=== PATIENT | female | born 1985 | race Caucasian/White ===

== ENCOUNTER 2017-02-07 12:41 | Emergency (ER) | payer OTHER ==
[2017-02-07] MEDS ORDERED: KETOROLAC 30 MG/ML 1 ML VIAL IVP STA (13:26)
--- NOTE | 2017-02-07 14:03 | ED ---
General Adult HPI - General Chief complaint: Chest Pain Stated complaint: Chest/Back Pain Time Seen by Provider: 02/07/17 13:16 Source: patient Mode of arrival: wheelchair Limitations: no limitations - History of Present Illness Initial comments: 31-year-old female patient presented to emergency department today with complaints of left upper back pain radiates around her left side into her chest. Patient states this has been present for the last 2 days. Patient states that it started as a mild sharp pain to the back, and has progressively worsened and spread to the chest. She states the pain increases significantly with any deep breath, movement, or coughing. She states that she has had pleurisy in the past this feels similar to that. She states that the pain is severe and she cannot tolerate it any longer. She denies any falls or injury causing the pain. She denies any shortness of breath. Denies any cough, congestion, fever, chills, nausea, vomiting, dizziness, weakness, numbness, tinlging, sweats, abdominal pain, neck pain, hematuria, dysuria, urinary frequency, or urinary urgency. Denies any constipation or diarrhea. - Related Data Previous Rx's Medication Instructions Recorded Omeprazole 40 mg PO AC-BRKFST #20 cap 03/06/15 Sucralfate [Carafate] 1 gm PO TID PRN #30 oral.susp 03/06/15 Sulfamethox-Tmp 800-160Mg [Bactrim 1 each PO Q12HR #10 tab 03/06/15 Ds] Acetaminophen-Codeine 300-30mg 1 tab PO Q6H PRN #15 tablet 02/07/17 [Tylenol #3] Cyclobenzaprine [Flexeril] 10 mg PO TID #15 tab 02/07/17 Ibuprofen [Motrin] 600 mg PO Q8HR PRN #30 tab 02/07/17 Allergies Allergy/AdvReac Type Severity Reaction Status Date / Time No Known Allergies Allergy Verified 03/06/15 12:29 Review of Systems ROS Statement: Those systems with pertinent positive or pertinent negative responses have been documented in the HPI. ROS Other: All systems not noted in ROS Statement are negative. Past Medical History Past Medical History: No Reported History Additional Past Medical History / Comment(s): kidney History of Any Multi-Drug Resistant Organisms: None Reported Past Surgical History: Section Past Psychological History: No Psychological Hx Reported Smoking Status: Current every day smoker Past Alcohol Use History: Occasional Past Drug Use History: None Reported General Exam Limitations: no limitations General appearance: alert, anxious, in distress (This is a well-developed, well- nourished adult female patient in mild distress related to pain. Patient is anxious and crying during exam. Vital signs upon presentation are temperature 98.0F, pulse 113, respirations 18, blood pressure 141/89, pulse ox 100% on room air.) ENT exam: Present: normal exam, normal oropharynx, mucous membranes moist Neck exam: Present: normal inspection, full ROM. Absent: tenderness, meningismus, lymphadenopathy Respiratory exam: Present: normal lung sounds bilaterally. Absent: respiratory distress, wheezes, rales, rhonchi, stridor, chest wall tenderness Cardiovascular Exam: Present: normal rhythm, tachycardia, normal heart sounds. Absent: systolic murmur, diastolic murmur, rubs, gallop, clicks GI/Abdominal exam: Present: soft, normal bowel sounds. Absent: distended, tenderness, guarding, rebound, rigid Extremities exam: Present: normal inspection, full ROM, normal capillary refill. Absent: tenderness, pedal edema, joint swelling, calf tenderness Back exam: Present: normal inspection. Absent: tenderness, rash noted Neurological exam: Present: alert, oriented X3, CN II-XII intact Psychiatric exam: Present: normal affect, normal mood Skin exam: Present: warm, dry, intact, normal color. Absent: rash Course Vital Signs 02/07/17 02/07/17 13:02 14:35 Temperature 98.0 F Pulse Rate 113 H 106 H Respiratory 18 22 Rate Blood Pressure 141/89 146/96 O2 Sat by Pulse 100 99 Oximetry EKG Findings - EKG Comments: EKG Findings:: EKG obtained at 1313 shows normal sinus rhythm with a short VA interval. There is appearance of a septal infarct of indeterminate age. Ventricular rate is 100, VA interval 104, QRS duration 74, QT 374, QTC 482. There is some artifact noted throughout the reading. Medical Decision Making - Medical Decision Making 31-year-old female patient presented for evaluation of left upper back pain that radiates around to her chest. Physical exam is unremarkable, patient is nontender, there is no evidence of rash. Lung sounds are clear. Urinalysis was performed and did show trace blood, but with less than 1 red blood cell. No evidence of infection. Patient has had pleurisy before and states this feels very similar. Patient did receive IV pain medication here in the department which she states did improve her pain. She'll be given pain medication for home as well as the next 2 days off work. She is instructed to follow-up with her primary care physician for recheck in 1-2 days. She is instructed to return here immediately for any new, worsening, or concerning symptoms. She verbalizes understanding and agrees this plan. - Lab Data Result diagrams: 02/07/17 13:45 02/07/17 13:45 Lab Results 02/07/17 02/07/17 02/07/17 Range/Units 13:45 13:45 13:45 WBC 8.5 (3.8-10.6) k/uL RBC 4.02 (3.80-5.40) m/uL Hgb 12.3 (11.4-16.0) gm/dL Hct 38.6 (34.0-46.0) % MCV 95.9 (80.0-100.0) fL MCH 30.5 (25.0-35.0) pg MCHC 31.9 (31.0-37.0) g/dL RDW 17.2 H (11.5-15.5) % Plt Count 364 (150-450) k/uL Neutrophils % 68 % Lymphocytes % 22 % Monocytes % 7 % Eosinophils % 2 % Basophils % 1 % Neutrophils # 5.8 (1.3-7.7) k/uL Lymphocytes # 1.9 (1.0-4.8) k/uL Monocytes # 0.6 (0-1.0) k/uL Eosinophils # 0.1 (0-0.7) k/uL Basophils # 0.1 (0-0.2) k/uL Anisocytosis Slight Macrocytosis Slight D-Dimer 0.23 (<0.60) mg/L FEU Sodium 139 (137-145) mmol/L Potassium 4.1 (3.5-5.1) mmol/L Chloride 104 (98-107) mmol/L Carbon Dioxide 18 L (22-30) mmol/L Anion Gap 17 mmol/L BUN 11 (7-17) mg/dL Creatinine 0.85 (0.52-1.04) mg/dL Est GFR (MDRD) Af Amer >60 (>60 ml/min/1.73 sqM) Est GFR (MDRD) Non-Af >60 (>60 ml/min/1.73 sqM) Glucose 96 (74-99) mg/dL Calcium 9.6 (8.4-10.2) mg/dL Total Bilirubin 0.4 (0.2-1.3) mg/dL AST 63 H (14-36) U/L ALT 40 (9-52) U/L Alkaline Phosphatase 103 (38-126) U/L Troponin I (0.000-0.034) ng/mL Total Protein 7.7 (6.3-8.2) g/dL Albumin 4.5 (3.5-5.0) g/dL Urine Color Urine Appearance (Clear) Urine pH (5.0-8.0) Ur Specific [place] (1.001-1.035) Urine Protein (Negative) Urine Glucose (UA) (Negative) Urine Ketones (Negative) Urine Blood (Negative) Urine Nitrite (Negative) Urine Bilirubin (Negative) Urine Urobilinogen (<2.0) mg/dL Ur Leukocyte Esterase (Negative) Urine RBC (0-5) /hpf Urine WBC (0-5) /hpf Ur Squamous Epith Cells (0-4) /hpf Amorphous Sediment (None) /hpf Urine Mucus (None) /hpf Urine HCG, Qual (Not Detectd) 02/07/17 02/07/17 02/07/17 Range/Units 13:45 13:45 13:45 WBC (3.8-10.6) k/uL RBC (3.80-5.40) m/uL Hgb (11.4-16.0) gm/dL Hct (34.0-46.0) % MCV (80.0-100.0) fL MCH (25.0-35.0) pg MCHC (31.0-37.0) g/dL RDW (11.5-15.5) % Plt Count (150-450) k/uL Neutrophils % % Lymphocytes % % Monocytes % % Eosinophils % % Basophils % % Neutrophils # (1.3-7.7) k/uL Lymphocytes # (1.0-4.8) k/uL Monocytes # (0-1.0) k/uL Eosinophils # (0-0.7) k/uL Basophils # (0-0.2) k/uL Anisocytosis Macrocytosis D-Dimer (<0.60) mg/L FEU Sodium (137-145) mmol/L Potassium (3.5-5.1) mmol/L Chloride (98-107) mmol/L Carbon Dioxide (22-30) mmol/L Anion Gap mmol/L BUN (7-17) mg/dL Creatinine (0.52-1.04) mg/dL Est GFR (MDRD) Af Amer (>60 ml/min/1.73 sqM) Est GFR (MDRD) Non-Af (>60 ml/min/1.73 sqM) Glucose (74-99) mg/dL Calcium (8.4-10.2) mg/dL Total Bilirubin (0.2-1.3) mg/dL AST (14-36) U/L ALT (9-52) U/L Alkaline Phosphatase (38-126) U/L Troponin I <0.012 (0.000-0.034) ng/mL Total Protein (6.3-8.2) g/dL Albumin (3.5-5.0) g/dL Urine Color Colorless Urine Appearance Clear (Clear) Urine pH 5.0 (5.0-8.0) Ur Specific [place] 1.004 (1.001-1.035) Urine Protein Negative (Negative) Urine Glucose (UA) Negative (Negative) Urine Ketones Negative (Negative) Urine Blood Small H (Negative) Urine Nitrite Negative (Negative) Urine Bilirubin Negative (Negative) Urine Urobilinogen <2.0 (<2.0) mg/dL Ur Leukocyte Esterase Negative (Negative) Urine RBC <1 (0-5) /hpf Urine WBC 2 (0-5) /hpf Ur Squamous Epith Cells <1 (0-4) /hpf Amorphous Sediment Rare H (None) /hpf Urine Mucus Rare H (None) /hpf Urine HCG, Qual Not Detected (Not Detectd) - Radiology Data Radiology results: report reviewed, image reviewed Two-view x-ray of the chest as the cardiac mediastinal Laura, aorta, and pulmonary vasculature within normal limits. Lungs and pleural spaces are clear. Impression by Dr. Shay shows no acute cardio pulmonary process. Disposition Clinical Impression: Upper back pain on left side, Pleurisy Disposition: HOME SELF-CARE Condition: Good Instructions: Pleurisy (ED), Back Pain (ED) Additional Instructions: Take medications as directed. Increase fluids. Rest. Follow-up with her primary care physician for recheck in 1-2 days. Return here immediately for any new, worsening, or concerning symptoms. Prescriptions: Acetaminophen-Codeine 300-30mg [Tylenol #3] 1 tab PO Q6H PRN #15 tablet PRN Reason: Pain Cyclobenzaprine [Flexeril] 10 mg PO TID #15 tab Ibuprofen [Motrin] 600 mg PO Q8HR PRN #30 tab PRN Reason: Pain Referrals: Kt Leach MD [Primary Care Provider] - 1-2 days Time of Disposition: 15:16
[2017-02-07 14:14] LABS: Anisocytosis Slight; Basophils # (A) 0.1 k/uL (0-0.2); Basophils % (A) 1 %; CH 31.5; CHCM 32.9; Eosinophils # (A) 0.1 k/uL (0-0.7); Eosinophils % (A) 2 %; HCT 38.6 % (34.0-46.0); HDW 2.37; HGB 12.3 gm/dL (11.4-16.0); Luc # (Auto) 0.09; Luc % (Auto) 1; Lymphocytes # (A) 1.9 k/uL (1.0-4.8); Lymphocytes % (A) 22 %; MCH 30.5 pg (25.0-35.0); MCHC 31.9 g/dL (31.0-37.0); MCV 95.9 fL (80.0-100.0); Macrocytosis Slight; Mean Platelet Volume 7.1; Monocytes # (A) 0.6 k/uL (0-1.0); Monocytes % (A) 7 %; Neutrophils # (A) 5.8 k/uL (1.3-7.7); Neutrophils % (A) 68 %; RBC 4.02 m/uL (3.80-5.40); RDW 17.2 % (11.5-15.5); WBC 8.5 k/uL (3.8-10.6); WBC (Perox) 8.84
[2017-02-07 14:16] LABS: Amorphous Sediment,Urine Rare /hpf; Appearance,Urine Clear (Clear); Bilirubin,Urine Negative (Negative); Glucose,Urine (UA) Negative (Negative); Ketones,Urine Negative (Negative); Leukocyte Esterase,Urine Negative (Negative); Mucus,Urine Rare /hpf; Nitrite,Urine Negative (Negative); Particle Count 782; Protein,Urine Negative (Negative); RBC,Urine <1 /hpf (0-5); Specific Gravity,Urine 1.004 (1.001-1.035); Squamous Epithelial Cell,Urine <1 /hpf (0-4); UA Billing (MACRO vs. MICRO) MICRO; Urobilinogen,Urine <2.0 mg/dL (<2.0); WBC,Urine 2 /hpf (0-5)
[2017-02-07 14:23] LABS: ALT 40 U/L (9-52); AST 63 U/L (14-36); Alkaline Phosphatase 103 U/L (38-126); Anion Gap 17 mmol/L; Blood Urea Nitrogen 11 mg/dL (7-17); Calcium 9.6 mg/dL (8.4-10.2); Carbon Dioxide 18 mmol/L (22-30); Chloride 104 mmol/L (98-107); Glucose 96 mg/dL (74-99); Non-African American GFR(MDRD) >60 (>60 ml/min/1.73 sqM); Potassium 4.1 mmol/L (3.5-5.1); Sodium 139 mmol/L (137-145); Total Bilirubin 0.4 mg/dL (0.2-1.3); Total Protein 7.7 g/dL (6.3-8.2)
--- NOTE | 2017-02-07 14:33 | XR ---
EXAMINATION TYPE: XR chest 2V DATE OF EXAM: 02/07/2017 COMPARISON: None HISTORY: 31-year-old female with chest pain and shortness of breath TECHNIQUE: PA and lateral views FINDINGS: The cardiomediastinal silhouette, aorta, and pulmonary vasculature are within normal limits. Lungs an d pleural spaces are clear. IMPRESSION: No acute cardiopulmonary process.
[2017-02-07] MEDS ORDERED: HYDROmorphone 1 MG/ML 1 ML SYRINGE IVP STA (14:34)
[2017-02-07 15:34] VITALS: BP 146/87; PULSE 83; RESP 20; TEMP 98.3
== END 2017-02-07 15:30 | disposition home or self-care (01) ==
LOC: EC 12:41
DX: R09.1 Pleurisy (principal); M54.6 Pain in thoracic spine; R00.0 Tachycardia, unspecified; F17.200 Nicotine dependence, unspecified, uncomplicated
CPT/HCPCS: 99285 ×2; 96374 ×2; 96375 ×2; 36415; 93005; 85379; 80053; 84484; 85025; 81001; 81025; 71020; J1885; J1170

== ENCOUNTER 2020-09-12 10:01 | Emergency (ER) | payer OTHER ==
[2020-09-12 10:07] VITALS: RESP 18; TEMP 97.8
[2020-09-12] MEDS ORDERED: SODIUM CHLORIDE 0.9% 500 ML 500 ML IV STA (10:15)
[2020-09-12] MEDS ORDERED: SODIUM CHLORIDE 0.9% 1,000 ML IV STA (10:15)
[2020-09-12] MEDS ORDERED: ONDANSETRON 4 MG/2 ML VIAL IVP STA (10:15)
[2020-09-12] MEDS ORDERED: PANTOPRAZOLE 40 MG/10 ML VIAL IVP STA (10:15)
[2020-09-12] MEDS ORDERED: KETOROLAC 15 MG/ML 1 ML VIAL IVP STA (10:15)
--- NOTE | 2020-09-12 10:19 | ED ---
Abdominal Pain HPI - General Chief Complaint: Abdominal Pain Stated Complaint: ABD pain Time Seen by Provider: 09/12/20 10:07 Source: patient, RN notes reviewed Mode of arrival: ambulatory Limitations: no limitations - History of Present Illness Initial Comments: 35-year-old female presents emergency Department chief complaint of upper abdominal pain. Patient states she's been vomiting with pain for last 4 days. She states she attempts to eat vomits. Patient states she's had loose watery stool with states that there is very minimal output and feels constipated. Patient had prior sections other abdominal surgeries no chest pain no back pain. Patient does admit to increased reflux. Patient denies any sick contacts no fevers chills. - Related Data Previous Rx's Medication Instructions Recorded Omeprazole 40 mg PO AC-BRKFST #20 cap 03/06/15 Sucralfate [Carafate] 1 gm PO TID PRN #30 oral.susp 03/06/15 Sulfamethox-Tmp 800-160Mg [Bactrim 1 each PO Q12HR #10 tab 03/06/15 Ds] Acetaminophen-Codeine 300-30mg 1 tab PO Q6H PRN #15 tablet 02/07/17 [Tylenol #3] Cyclobenzaprine [Flexeril] 10 mg PO TID #15 tab 02/07/17 Ibuprofen [Motrin] 600 mg PO Q8HR PRN #30 tab 02/07/17 Omeprazole [PriLOSEC] 40 mg PO DAILY #14 cap 09/12/20 Ondansetron Odt [Zofran Odt] 4 mg PO Q8HR PRN #14 tab 09/12/20 Allergies Allergy/AdvReac Type Severity Reaction Status Date / Time No Known Allergies Allergy Verified 09/12/20 10:06 Review of Systems ROS Statement: Those systems with pertinent positive or pertinent negative responses have been documented in the HPI. ROS Other: All systems not noted in ROS Statement are negative. Past Medical History Past Medical History: No Reported History Additional Past Medical History / Comment(s): kidney stones History of Any Multi-Drug Resistant Organisms: None Reported Past Surgical History: Section Past Psychological History: No Psychological Hx Reported Smoking Status: Current every day smoker Past Alcohol Use History: Occasional Past Drug Use History: None Reported General Exam Limitations: no limitations General appearance: alert, in no apparent distress Head exam: Present: atraumatic, normocephalic, normal inspection Eye exam: Present: normal appearance, PERRL, EOMI. Absent: scleral icterus, conjunctival injection, periorbital swelling Neck exam: Present: normal inspection. Absent: tenderness, lymphadenopathy Respiratory exam: Present: normal lung sounds bilaterally. Absent: respiratory distress, wheezes, rales, rhonchi, stridor Cardiovascular Exam: Present: normal rhythm, tachycardia, normal heart sounds. Absent: systolic murmur, diastolic murmur, rubs, gallop, clicks GI/Abdominal exam: Present: soft, tenderness (Moderate epigastric), normal bowel sounds. Absent: distended, guarding, rebound, rigid Back exam: Absent: CVA tenderness (R), CVA tenderness (L) Neurological exam: Present: alert Skin exam: Present: warm, dry, intact, normal color. Absent: rash Course Vital Signs 09/12/20 09/12/20 10:02 11:39 Temperature 97.8 F Pulse Rate 128 H 99 Respiratory 18 18 Rate Blood Pressure 146/105 133/100 O2 Sat by Pulse 100 100 Oximetry Medical Decision Making - Medical Decision Making Patient reevaluated and updated on results. Patient states she feels improved. Heart rate has improved ultrasound does show fatty liver, LFTs are mildly elevated patient advised to no alcohol, Tylenol intake she'll follow-up with GI patient was started on omeprazole, discharged with Zofran and return parameters were discussed. - Lab Data Result diagrams: 09/12/20 10:22 09/12/20 10:22 Lab Results 09/12/20 09/12/20 09/12/20 Range/Units 10:22 10:22 10:22 WBC 9.0 (3.8-10.6) k/uL RBC 3.87 (3.80-5.40) m/uL Hgb 14.0 (11.4-16.0) gm/dL Hct 39.7 (34.0-46.0) % MCV 102.6 H (80.0-100.0) fL MCH 36.3 H (25.0-35.0) pg MCHC 35.4 (31.0-37.0) g/dL RDW 12.4 (11.5-15.5) % Plt Count 218 (150-450) k/uL MPV 6.8 Neutrophils % 68 % Lymphocytes % 23 % Monocytes % 5 % Eosinophils % 3 % Basophils % 1 % Neutrophils # 6.2 (1.3-7.7) k/uL Lymphocytes # 2.0 (1.0-4.8) k/uL Monocytes # 0.4 (0-1.0) k/uL Eosinophils # 0.2 (0-0.7) k/uL Basophils # 0.1 (0-0.2) k/uL Macrocytosis Slight Sodium (137-145) mmol/L Potassium (3.5-5.1) mmol/L Chloride (98-107) mmol/L Carbon Dioxide (22-30) mmol/L Anion Gap mmol/L BUN (7-17) mg/dL Creatinine (0.52-1.04) mg/dL Est GFR (CKD-EPI)AfAm (>60 ml/min/1.73 sqM) Est GFR (CKD-EPI)NonAf (>60 ml/min/1.73 sqM) Glucose (74-99) mg/dL Plasma Lactic Acid [place] (0.7-2.0) mmol/L Calcium (8.4-10.2) mg/dL Total Bilirubin (0.2-1.3) mg/dL AST (14-36) U/L ALT (4-34) U/L Alkaline Phosphatase (38-126) U/L Troponin I (0.000-0.034) ng/mL Total Protein (6.3-8.2) g/dL Albumin (3.5-5.0) g/dL Amylase (30-110) U/L Lipase (23-300) U/L Urine Color Dark Yellow Urine Appearance Cloudy H (Clear) Urine pH 6.0 (5.0-8.0) Ur Specific [place] 1.023 (1.001-1.035) Urine Protein 1+ H (Negative) Urine Glucose (UA) Negative (Negative) Urine Ketones Trace H (Negative) Urine Blood Negative (Negative) Urine Nitrite Negative (Negative) Urine Bilirubin 1+ H (Negative) Urine Urobilinogen 2.0 (<2.0) mg/dL Ur Leukocyte Esterase Small H (Negative) Urine RBC 2 (0-5) /hpf Urine WBC 10 H (0-5) /hpf Ur Squamous Epith Cells 27 H (0-4) /hpf Urine Bacteria Rare H (None) /hpf Hyaline Casts 54 H (0-2) /lpf Urine Mucus Many H (None) /hpf Urine HCG, Qual Not Detected (Not Detectd) 09/12/20 09/12/20 09/12/20 Range/Units 10:22 10:22 10:22 WBC (3.8-10.6) k/uL RBC (3.80-5.40) m/uL Hgb (11.4-16.0) gm/dL Hct (34.0-46.0) % MCV (80.0-100.0) fL MCH (25.0-35.0) pg MCHC (31.0-37.0) g/dL RDW (11.5-15.5) % Plt Count (150-450) k/uL MPV Neutrophils % % Lymphocytes % % Monocytes % % Eosinophils % % Basophils % % Neutrophils # (1.3-7.7) k/uL Lymphocytes # (1.0-4.8) k/uL Monocytes # (0-1.0) k/uL Eosinophils # (0-0.7) k/uL Basophils # (0-0.2) k/uL Macrocytosis Sodium 139 (137-145) mmol/L Potassium 3.7 (3.5-5.1) mmol/L Chloride 103 (98-107) mmol/L Carbon Dioxide 25 (22-30) mmol/L Anion Gap 11 mmol/L BUN 3 L (7-17) mg/dL Creatinine 0.73 (0.52-1.04) mg/dL Est GFR (CKD-EPI)AfAm >90 (>60 ml/min/1.73 sqM) Est GFR (CKD-EPI)NonAf >90 (>60 ml/min/1.73 sqM) Glucose 102 H (74-99) mg/dL Plasma Lactic Acid [place] 2.0 (0.7-2.0) mmol/L Calcium 9.7 (8.4-10.2) mg/dL Total Bilirubin 0.7 (0.2-1.3) mg/dL AST 252 H (14-36) U/L ALT 73 H (4-34) U/L Alkaline Phosphatase 109 (38-126) U/L Troponin I <0.012 (0.000-0.034) ng/mL Total Protein 7.7 (6.3-8.2) g/dL Albumin 4.5 (3.5-5.0) g/dL Amylase 49 (30-110) U/L Lipase 48 (23-300) U/L Urine Color Urine Appearance (Clear) Urine pH (5.0-8.0) Ur Specific [place] (1.001-1.035) Urine Protein (Negative) Urine Glucose (UA) (Negative) Urine Ketones (Negative) Urine Blood (Negative) Urine Nitrite (Negative) Urine Bilirubin (Negative) Urine Urobilinogen (<2.0) mg/dL Ur Leukocyte Esterase (Negative) Urine RBC (0-5) /hpf Urine WBC (0-5) /hpf Ur Squamous Epith Cells (0-4) /hpf Urine Bacteria (None) /hpf Hyaline Casts (0-2) /lpf Urine Mucus (None) /hpf Urine HCG, Qual (Not Detectd) Disposition Clinical Impression: Abdominal pain, Gastritis, Fatty liver, Nausea & vomiting Disposition: HOME SELF-CARE Condition: Stable Instructions (If sedation given, give patient instructions): Abdominal Pain (ED) Additional Instructions: Please return to the Emergency Department if symptoms worsen or any other concerns. Prescriptions: Omeprazole [PriLOSEC] 40 mg PO DAILY #14 cap Ondansetron Odt [Zofran Odt] 4 mg PO Q8HR PRN #14 tab PRN Reason: Nausea Is patient prescribed a controlled substance at d/c from ED?: No Referrals: Kt Leach MD [Primary Care Provider] - 1-2 days Dolly Gonsalez MD [STAFF PHYSICIAN] - 1-2 days Time of Disposition: 11:49
[2020-09-12 10:41] LABS: Basophils # (A) 0.1 k/uL (0-0.2); Basophils % (A) 1 %; Eosinophils # (A) 0.2 k/uL (0-0.7); Eosinophils % (A) 3 %; HCT 39.7 % (34.0-46.0); Lymphocytes % (A) 23 %; MCH 36.3 pg (25.0-35.0); MCHC 35.4 g/dL (31.0-37.0); MCV 102.6 fL (80.0-100.0); Macrocytosis Slight; Mean Platelet Volume 6.8; Monocytes # (A) 0.4 k/uL (0-1.0); Monocytes % (A) 5 %; Neutrophils # (A) 6.2 k/uL (1.3-7.7); Neutrophils % (A) 68 %; Platelet Count 218 k/uL (150-450); RBC 3.87 m/uL (3.80-5.40); RDW 12.4 % (11.5-15.5)
[2020-09-12 10:57] LABS: Appearance,Urine Cloudy (Clear); Bacteria,Urine Rare /hpf; Bilirubin,Urine 1+ (Negative); Blood,Urine Negative (Negative); Color,Urine Dark Yellow; Glucose,Urine (UA) Negative (Negative); Hyaline Casts,Urine 54 /lpf (0-2); Ketones,Urine Trace (Negative); Leukocyte Esterase,Urine Small (Negative); Mucus,Urine Many /hpf; Nitrite,Urine Negative (Negative); Protein,Urine 1+ (Negative); RBC,Urine 2 /hpf (0-5); Specific Gravity,Urine 1.023 (1.001-1.035); Squamous Epithelial Cell,Urine 27 /hpf (0-4); WBC,Urine 10 /hpf (0-5)
[2020-09-12 10:59] LABS: ALT 73 U/L (4-34); AST 252 U/L (14-36); African American GFR (CKD) >90 (>60 ml/min/1.73 sqM); Albumin 4.5 g/dL (3.5-5.0); Alkaline Phosphatase 109 U/L (38-126); Amylase 49 U/L (30-110); Anion Gap 11 mmol/L; Blood Urea Nitrogen 3 mg/dL (7-17); Calcium 9.7 mg/dL (8.4-10.2); Carbon Dioxide 25 mmol/L (22-30); Chloride 103 mmol/L (98-107); Glucose 102 mg/dL (74-99); Lipase 48 U/L (23-300); Non-African American GFR(CKD) >90 (>60 ml/min/1.73 sqM); Potassium 3.7 mmol/L (3.5-5.1); Sodium 139 mmol/L (137-145); Total Bilirubin 0.7 mg/dL (0.2-1.3); Total Protein 7.7 g/dL (6.3-8.2)
--- NOTE | 2020-09-12 11:10 | US ---
EXAMINATION TYPE: US gallbladder DATE OF EXAM: 09/12/2020 COMPARISON: US & CT CLINICAL HISTORY: pain. Pt states ABD pain, N & V EXAM MEASUREMENTS: Liver Length: 19.0 cm Gallbladder Wall: 0.2 cm CBD: 0.4 cm Right Kidney: 11.2 x 3.9 x 4.7 cm Pancreas: wnl Liver: Enlarged, heterogeneous, difficult to penetrate Gallbladder: wnl Evidence for sonographic Medina's sign: No CBD: wnl Right Kidney: Lobulated contour IMPRESSION: 1. Hepatomegaly correlate for hepatic steatosis or hepatocellular disease including hepatitis.
[2020-09-12 11:41] VITALS: BP 133/100; PULSE 99
[2020-09-12 21:17] LABS: Hepatitis A Antibody IgM Non-Reactive (Non-Reactive); Hepatitis B Core IgM Non-Reactive (Non-Reactive); Hepatitis B Surface Antigen Non-Reactive (Non-Reactive); Hepatitis C IgG Antibody Non-Reactive (Non-Reactive)
== END 2020-09-12 11:58 | disposition home or self-care (01) ==
LOC: EC 10:01
DX: K76.0 Fatty (change of) liver, not elsewhere classified (principal); K29.70 Gastritis, unspecified, without bleeding; Z87.442 Personal history of urinary calculi; F17.200 Nicotine dependence, unspecified, uncomplicated
CPT/HCPCS: 36415; 93005; 80053; 80074; 82150; 83605; 83690; 84484; 85025; 81001; 81025; 76705; 99284; 96374; 96375 ×2; J2405; J1885; C9113

== ENCOUNTER 2021-05-20 10:20 | Inpatient (IN) | payer OTHER ==
[2021-05-20] MEDS ORDERED: SODIUM CHLORIDE 0.9% 2,000 ML IV STA (11:18)
[2021-05-20] MEDS ORDERED: FAMOTIDINE 20 MG/2 ML VIAL IV STA (11:26)
[2021-05-20] MEDS ORDERED: LORazepam 2 MG/ML INJ IV STA (11:26)
[2021-05-20] MEDS ORDERED: ACETAMINOPHEN TAB 500 MG TAB PO STA (11:27)
[2021-05-20] MEDS ORDERED: ONDANSETRON 4 MG/2 ML VIAL IVP STA (11:35)
--- NOTE | 2021-05-20 11:36 | ED ---
General Adult HPI - General Chief complaint: Nausea/Vomiting/Diarrhea Stated complaint: vomiting/dizziness Time Seen by Provider: 05/20/21 10:43 Source: patient Mode of arrival: ambulatory Limitations: no limitations - History of Present Illness Initial comments: 35-year-old female presents to the emergency room for a chief of nausea vomiting. Patient reports she has been nauseous for 2 weeks. States she has been vomiting and not able to keep much down. Patient states she does drink daily but hasn't drank for the past 2 days. Patient also complaining of upper abdominal pain. Denies any lower abdominal pain or fevers.Patient has no other complaints at this time including shortness of breath, chest pain, headache, or visual changes. - Related Data Home Medications Medication Instructions Recorded Confirmed Allopurinol [Zyloprim] 300 mg PO HS 05/20/21 05/20/21 Losartan [Cozaar] 50 mg PO HS 05/20/21 05/20/21 Ondansetron Odt [Zofran Odt] 4 mg PO Q12H PRN 05/20/21 05/20/21 Allergies Allergy/AdvReac Type Severity Reaction Status Date / Time No Known Allergies Allergy Verified 05/20/21 11:38 Review of Systems ROS Statement: Those systems with pertinent positive or pertinent negative responses have been documented in the HPI. ROS Other: All systems not noted in ROS Statement are negative. Past Medical History Past Medical History: No Reported History Additional Past Medical History / Comment(s): kidney stones History of Any Multi-Drug Resistant Organisms: None Reported Past Surgical History: Section Past Psychological History: No Psychological Hx Reported Smoking Status: Current every day smoker Past Alcohol Use History: Occasional Past Drug Use History: None Reported General Exam Limitations: no limitations General appearance: alert, in no apparent distress Head exam: Present: atraumatic Eye exam: Present: normal appearance, PERRL, EOMI. Absent: scleral icterus, conjunctival injection ENT exam: Present: normal exam, mucous membranes moist Neck exam: Present: normal inspection, full ROM. Absent: tenderness Respiratory exam: Present: normal lung sounds bilaterally. Absent: respiratory distress, wheezes Cardiovascular Exam: Present: regular rate, normal rhythm, normal heart sounds GI/Abdominal exam: Present: soft, tenderness (mild epigastric abdominal tenderness, no lower abodminal tenderness), normal bowel sounds. Absent: distended Course Vital Signs 05/20/21 05/20/21 10:28 13:01 Temperature 98.5 F Pulse Rate 136 H 132 H Respiratory 22 18 Rate Blood Pressure 140/75 103/60 O2 Sat by Pulse 100 98 Oximetry Medical Decision Making - Medical Decision Making Patient presents tachycardic in the 130s and 140s. EKG revealed sinus tachycardia. Patient does have a history of alcoholism and states she has not drank for 2 days because of this nausea vomiting. CBC unremarkable. CMP does show mild hypokalemia as well as hypo-magnesium. These are replaced. Bilirubin slightly elevated likely secondary to vomiting. Mild transaminitis likely secondary to chronic liver disease. Urinalysis does not show any obvious evidence of infection. It ultrasound of the gallbladder revealed sludge however no cholecystitis. Patient continues to have a heart rate over 1:30. Suspect this is secondary to both dehydration and a college all. Patient will be admitted for intractable nausea and vomiting, or parenteral hydration, and alcohol withdrawal. - Lab Data Result diagrams: 05/20/21 11:28 05/20/21 11:28 Lab Results 05/20/21 05/20/21 05/20/21 Range/Units 11:28 11:28 11:28 WBC 12.1 H (3.8-10.6) k/uL RBC 3.74 L (3.80-5.40) m/uL Hgb 13.5 (11.4-16.0) gm/dL Hct 40.9 (34.0-46.0) % MCV 109.4 H (80.0-100.0) fL MCH 36.1 H (25.0-35.0) pg MCHC 33.0 (31.0-37.0) g/dL RDW 15.0 (11.5-15.5) % Plt Count 367 (150-450) k/uL MPV 7.7 Neutrophils % 77 % Lymphocytes % 13 % Monocytes % 7 % Eosinophils % 1 % Basophils % 0 % Neutrophils # 9.3 H (1.3-7.7) k/uL Lymphocytes # 1.6 (1.0-4.8) k/uL Monocytes # 0.8 (0-1.0) k/uL Eosinophils # 0.1 (0-0.7) k/uL Basophils # 0.1 (0-0.2) k/uL Manual Slide Review Performed RBC Morphology V Poikilocytosis (manual Present Macrocytosis Marked A Stomatocytes Present PT 12.5 H (9.0-12.0) sec INR 1.2 H (<1.2) APTT 25.3 (22.0-30.0) sec Sodium (137-145) mmol/L Potassium (3.5-5.1) mmol/L Chloride (98-107) mmol/L Carbon Dioxide (22-30) mmol/L Anion Gap mmol/L BUN (7-17) mg/dL Creatinine (0.52-1.04) mg/dL Est GFR (CKD-EPI)AfAm (>60 ml/min/1.73 sqM) Est GFR (CKD-EPI)NonAf (>60 ml/min/1.73 sqM) Glucose (74-99) mg/dL Calcium (8.4-10.2) mg/dL Magnesium (1.6-2.3) mg/dL Total Bilirubin (0.2-1.3) mg/dL AST (14-36) U/L ALT (4-34) U/L Alkaline Phosphatase (38-126) U/L Total Protein (6.3-8.2) g/dL Albumin (3.5-5.0) g/dL Amylase (30-110) U/L Lipase (23-300) U/L Urine Color Dark Brown Urine Appearance Turbid H (Clear) Urine pH 5.0 (5.0-8.0) Ur Specific [place] 1.025 (1.001-1.035) Urine Protein 1+ H (Negative) Urine Glucose (UA) Trace H (Negative) Urine Ketones Trace H (Negative) Urine Blood Negative (Negative) Urine Nitrite Negative (Negative) Urine Bilirubin 1+ H (Negative) Urine Urobilinogen 3.0 (<2.0) mg/dL Ur Leukocyte Esterase Small H (Negative) Urine RBC 8 H (0-5) /hpf Urine WBC 12 H (0-5) /hpf Urine WBC Clumps Few H (None) /hpf Ur Squamous Epith Cells 30 H (0-4) /hpf Urine Bacteria Occasional H (None) /hpf Hyaline Casts 512 H (0-2) /lpf Urine Mucus Many H (None) /hpf Urine HCG, Qual (Not Detectd) Serum Alcohol mg/dL Coronavirus (PCR) (Not Detectd) 05/20/21 05/20/21 05/20/21 Range/Units 11:28 11:28 12:26 WBC (3.8-10.6) k/uL RBC (3.80-5.40) m/uL Hgb (11.4-16.0) gm/dL Hct (34.0-46.0) % MCV (80.0-100.0) fL MCH (25.0-35.0) pg MCHC (31.0-37.0) g/dL RDW (11.5-15.5) % Plt Count (150-450) k/uL MPV Neutrophils % % Lymphocytes % % Monocytes % % Eosinophils % % Basophils % % Neutrophils # (1.3-7.7) k/uL Lymphocytes # (1.0-4.8) k/uL Monocytes # (0-1.0) k/uL Eosinophils # (0-0.7) k/uL Basophils # (0-0.2) k/uL Manual Slide Review RBC Morphology Poikilocytosis (manual Macrocytosis Stomatocytes PT (9.0-12.0) sec INR (<1.2) APTT (22.0-30.0) sec Sodium 132 L (137-145) mmol/L Potassium 3.2 L (3.5-5.1) mmol/L Chloride 92 L (98-107) mmol/L Carbon Dioxide 20 L (22-30) mmol/L Anion Gap 20 mmol/L BUN 5 L (7-17) mg/dL Creatinine 0.92 (0.52-1.04) mg/dL Est GFR (CKD-EPI)AfAm >90 (>60 ml/min/1.73 sqM) Est GFR (CKD-EPI)NonAf 81 (>60 ml/min/1.73 sqM) Glucose 151 H (74-99) mg/dL Calcium 9.2 (8.4-10.2) mg/dL Magnesium 1.2 L (1.6-2.3) mg/dL Total Bilirubin 2.2 H (0.2-1.3) mg/dL AST 208 H (14-36) U/L ALT 50 H (4-34) U/L Alkaline Phosphatase 132 H (38-126) U/L Total Protein 7.8 (6.3-8.2) g/dL Albumin 4.2 (3.5-5.0) g/dL Amylase 45 (30-110) U/L Lipase 21 L (23-300) U/L Urine Color Urine Appearance (Clear) Urine pH (5.0-8.0) Ur Specific [place] (1.001-1.035) Urine Protein (Negative) Urine Glucose (UA) (Negative) Urine Ketones (Negative) Urine Blood (Negative) Urine Nitrite (Negative) Urine Bilirubin (Negative) Urine Urobilinogen (<2.0) mg/dL Ur Leukocyte Esterase (Negative) Urine RBC (0-5) /hpf Urine WBC (0-5) /hpf Urine WBC Clumps (None) /hpf Ur Squamous Epith Cells (0-4) /hpf Urine Bacteria (None) /hpf Hyaline Casts (0-2) /lpf Urine Mucus (None) /hpf Urine HCG, Qual Not Detected (Not Detectd) Serum Alcohol <10 mg/dL Coronavirus (PCR) Not Detected (Not Detectd) Disposition Clinical Impression: Alcohol withdrawal, Intractable nausea and vomiting, Hypomagnesemia, Hypokalemia, Transaminitis, Gallbladder sludge Disposition: ADMITTED IP TO THIS HOSP Is patient prescribed a controlled substance at d/c from ED?: No Referrals: Kt Leach MD [Primary Care Provider] - 1-2 days Time of Disposition: 14:15
[2021-05-20 11:52] LABS: Basophils # (A) 0.1 k/uL (0-0.2); Basophils % (A) 0 %; Eosinophils # (A) 0.1 k/uL (0-0.7); Eosinophils % (A) 1 %; HCT 40.9 % (34.0-46.0); HGB 13.5 gm/dL (11.4-16.0); Lymphocytes # (A) 1.6 k/uL (1.0-4.8); Lymphocytes % (A) 13 %; MCH 36.1 pg (25.0-35.0); MCV 109.4 fL (80.0-100.0); Macrocytosis Marked; Mean Platelet Volume 7.7; Monocytes # (A) 0.8 k/uL (0-1.0); Monocytes % (A) 7 %; Neutrophils # (A) 9.3 k/uL (1.3-7.7); Neutrophils % (A) 77 %; Platelet Count 367 k/uL (150-450); RBC 3.74 m/uL (3.80-5.40); WBC 12.1 k/uL (3.8-10.6)
[2021-05-20 12:00] LABS: African American GFR (CKD) >90 (>60 ml/min/1.73 sqM); Albumin 4.2 g/dL (3.5-5.0); Alcohol <10 mg/dL; Alkaline Phosphatase 132 U/L (38-126); Amylase 45 U/L (30-110); Anion Gap 20 mmol/L; Blood Urea Nitrogen 5 mg/dL (7-17); Calcium 9.2 mg/dL (8.4-10.2); Carbon Dioxide 20 mmol/L (22-30); Chloride 92 mmol/L (98-107); Glucose 151 mg/dL (74-99); Lipase 21 U/L (23-300); Magnesium 1.2 mg/dL (1.6-2.3); Non-African American GFR(CKD) 81 (>60 ml/min/1.73 sqM); Sodium 132 mmol/L (137-145); Total Bilirubin 2.2 mg/dL (0.2-1.3); Total Protein 7.8 g/dL (6.3-8.2)
[2021-05-20 12:01] LABS: Appearance,Urine Turbid (Clear); Bacteria,Urine Occasional /hpf; Bilirubin,Urine 1+ (Negative); Blood,Urine Negative (Negative); Color,Urine Dark Brown; Glucose,Urine (UA) Trace (Negative); Hyaline Casts,Urine 512 /lpf (0-2); Ketones,Urine Trace (Negative); Leukocyte Esterase,Urine Small (Negative); Mucus,Urine Many /hpf; Nitrite,Urine Negative (Negative); Protein,Urine 1+ (Negative); RBC,Urine 8 /hpf (0-5); Specific Gravity,Urine 1.025 (1.001-1.035); Squamous Epithelial Cell,Urine 30 /hpf (0-4); WBC,Urine 12 /hpf (0-5)
[2021-05-20 12:03] LABS: INR 1.2 (<1.2); Partial Thromboplastin Time 25.3 sec (22.0-30.0); Prothrombin Time 12.5 sec (9.0-12.0)
[2021-05-20 12:15] LABS: ALT 50 U/L (4-34); AST 208 U/L (14-36); Potassium 3.2 mmol/L (3.5-5.1)
[2021-05-20 12:36] LABS: Stomatocytes Present
[2021-05-20 12:37] LABS: Poikilocytosis (M) Present
--- NOTE | 2021-05-20 12:39 | US ---
EXAMINATION TYPE: US gallbladder DATE OF EXAM: 05/20/2021 COMPARISON: US gallbladder September 12, 2020. CT abdomen and pelvis March 06, 2015 CLINICAL HISTORY: pain. EC patient with nausea and vomiting, epigastric pain x 2 weeks EXAM MEASUREMENTS: Liver Length: 14.5 cm Gallbladder Wall: 0.1 cm CBD: 0.5 cm Right Kidney: 10.1 x 5.5 x 3.4 cm Pancreas: hyperechoic Liver: prominent left lobe is noted; posterior right lobe is attenuated suggesting fatty liver Gallbladder: sludge is noted on posterior wall and in neck Evidence for sonographic Medina's sign: no CBD: wnl Right kidney: junctional wedge fat is noted mid lower cortex. Visualized liver is heterogeneously hyperechoic. Evaluation for focal masses suboptimal due to the he terogeneity. Liver size is stable measuring upper limits of normal to mildly enlarged. No surrounding ascites. Gallbladder sludge is present. No biliary dilatation. No right-sided hydronephrosis. IMPRESSION: Gallbladder sludge is thought present without secondary ultrasound evidence for acute cho lecystitis. Heterogeneous hyperechoic appearance of liver redemonstrated raising concern for underlyi ng hepatocellular disease and/or fatty infiltration. Correlate clinically and with liver lab values.
[2021-05-20] MEDS ORDERED: MAGNESIUM SULFATE-D5W PMX 1 GM in DEXTROSE/WATER 1 100ML.BAG IVPB STA (14:03)
[2021-05-20] MEDS ORDERED: POTASSIUM CHLORIDE ER 20 MEQ TAB.ER PO STA (14:03)
[2021-05-20] MEDS ORDERED: LORazepam 2 MG/ML INJ IV PRN ×2 (14:04)
[2021-05-20] MEDS ORDERED: THIAMINE 100 MG/ML 2 ML VIAL IM STA (14:04)
[2021-05-20] MEDS ORDERED: NALOXONE 0.4 MG/ML 1 ML VIAL IV PRN (14:14)
[2021-05-20] MEDS ORDERED: PROMETHAZINE 25 MG TAB PO PRN (14:14)
[2021-05-20] MEDS ORDERED: ONDANSETRON 4 MG/2 ML VIAL IVP PRN (14:14)
--- NOTE | 2021-05-20 14:21 | P.HPIM ---
History of Present Illness H&P Date: 05/20/21 5-year-old female with past medical history of alcohol abuse admitted to the hospital for not feeding well for the last few days the patient states that she has been drinking less alcohol in the last few days has been vomiting not feeding well having tremors Did have episodes of vomiting in the past Review of systems and systems has been reviewed all negative and positive findings as per history of present illness Patient is not complaining of chest pain or shortness of breath at this time Constitutional: No acute distress, conversant, pleasant Eyes: Anicteric sclerae, moist conjunctiva, no lid-lag PERRLA ENMT: NC/AT Oropharynx clear, no erythema, exudates Neck: Supple, FROM, no masses, or JVD No carotid bruits No thyromegaly Lungs: Clear to auscultation Clear to percussion Normal respiratory effort, no accessory muscle use Cardiovascular: Heart regular in rate and rhythm, No murmurs, gallops, or rubs No peripheral edema Abdominal: Soft Nontender, no guarding, rebound or rigidity Abdomen moving with respiration Normoactive bowel sounds No hepatomegaly, No splenomegaly No palpable mass No abdominal wall hernia noted Skin: Normal temperature, tone, texture, turgor No induration No subcutaneous nodules No rash, lesions No ulcers Extremities: No digital cyanosis No clubbing Pedal pulses intact and symmetrical Radial pulses intact and symmetrical Normal gait and station No calf tenderness Psychiatric:Alert and oriented to person, place and time Appropriate affect I ntact judgement Neuro: Muscles Strength 5/5 in all 4 extremities Sensation to light touch grossly present throughout Cranial nerves II-XII grossly intact No focal sensory deficits Assessment and plan Vomiting was started patient on IV hydration likely won't is related to alcohol withdrawals patient may need to have an EGD as an inpatient or outpatient Question about biliary sludge will consult surgery Alcohol withdrawals keep the patient on Ativan Tachycardia likely due to withdrawals we'll check cardiac enzymes and monitor Past Medical History Past Medical History: No Reported History Additional Past Medical History / Comment(s): kidney stones History of Any Multi-Drug Resistant Organisms: None Reported Past Surgical History: Section Past Psychological History: No Psychological Hx Reported Smoking Status: Current every day smoker Past Alcohol Use History: Occasional Past Drug Use History: None Reported Medications and Allergies Home Medications Medication Instructions Recorded Confirmed Type Allopurinol [Zyloprim] 300 mg PO HS 05/20/21 05/20/21 History Losartan [Cozaar] 50 mg PO HS 05/20/21 05/20/21 History Ondansetron Odt [Zofran Odt] 4 mg PO Q12H PRN 05/20/21 05/20/21 History Allergies Allergy/AdvReac Type Severity Reaction Status Date / Time No Known Allergies Allergy Verified 05/20/21 11:38 Physical Exam Vitals: Vital Signs Temp Pulse Resp BP Pulse Ox 05/20/21 13:01 132 H 18 103/60 98 05/20/21 10:28 98.5 F 136 H 22 140/75 100 Intake and Output 05/19/21 05/20/21 05/20/21 22:59 06:59 14:59 Other: Weight 56.699 kg Results CBC & Chem 7: 05/20/21 11:28 05/20/21 11:28 Labs: Abnormal Lab Results - Last 24 Hours (Table) 05/20/21 05/20/21 05/20/21 Range/Units 11:28 11:28 11:28 WBC 12.1 H (3.8-10.6) k/uL RBC 3.74 L (3.80-5.40) m/uL MCV 109.4 H (80.0-100.0) fL MCH 36.1 H (25.0-35.0) pg Neutrophils # 9.3 H (1.3-7.7) k/uL Macrocytosis Marked A PT 12.5 H (9.0-12.0) sec INR 1.2 H (<1.2) Sodium (137-145) mmol/L Potassium (3.5-5.1) mmol/L Chloride (98-107) mmol/L Carbon Dioxide (22-30) mmol/L BUN (7-17) mg/dL Glucose (74-99) mg/dL Magnesium (1.6-2.3) mg/dL Total Bilirubin (0.2-1.3) mg/dL AST (14-36) U/L ALT (4-34) U/L Alkaline Phosphatase (38-126) U/L Lipase (23-300) U/L Urine Appearance Turbid H (Clear) Urine Protein 1+ H (Negative) Urine Glucose (UA) Trace H (Negative) Urine Ketones Trace H (Negative) Urine Bilirubin 1+ H (Negative) Ur Leukocyte Esterase Small H (Negative) Urine RBC 8 H (0-5) /hpf Urine WBC 12 H (0-5) /hpf Urine WBC Clumps Few H (None) /hpf Ur Squamous Epith Cells 30 H (0-4) /hpf Urine Bacteria Occasional H (None) /hpf Hyaline Casts 512 H (0-2) /lpf Urine Mucus Many H (None) /hpf 05/20/21 Range/Units 11:28 WBC (3.8-10.6) k/uL RBC (3.80-5.40) m/uL MCV (80.0-100.0) fL MCH (25.0-35.0) pg Neutrophils # (1.3-7.7) k/uL Macrocytosis PT (9.0-12.0) sec INR (<1.2) Sodium 132 L (137-145) mmol/L Potassium 3.2 L (3.5-5.1) mmol/L Chloride 92 L (98-107) mmol/L Carbon Dioxide 20 L (22-30) mmol/L BUN 5 L (7-17) mg/dL Glucose 151 H (74-99) mg/dL Magnesium 1.2 L (1.6-2.3) mg/dL Total Bilirubin 2.2 H (0.2-1.3) mg/dL AST 208 H (14-36) U/L ALT 50 H (4-34) U/L Alkaline Phosphatase 132 H (38-126) U/L Lipase 21 L (23-300) U/L Urine Appearance (Clear) Urine Protein (Negative) Urine Glucose (UA) (Negative) Urine Ketones (Negative) Urine Bilirubin (Negative) Ur Leukocyte Esterase (Negative) Urine RBC (0-5) /hpf Urine WBC (0-5) /hpf Urine WBC Clumps (None) /hpf Ur Squamous Epith Cells (0-4) /hpf Urine Bacteria (None) /hpf Hyaline Casts (0-2) /lpf Urine Mucus (None) /hpf
[2021-05-20] MEDS: LORazepam 2 MG/ML INJ IV PRN (17:41)
[2021-05-20] MEDS: SODIUM CHLORIDE 0.9% 1,000 ML IV SCH (18:29)
[2021-05-20] MEDS: PANTOPRAZOLE 40 MG/10 ML VIAL IVP SCH (21:43)
[2021-05-20] MEDS: THIAMINE 100 MG TAB PO SCH (22:32)
[2021-05-21] MEDS: LORazepam 2 MG/ML INJ IV PRN ×3 (02:14→20:55)
[2021-05-21 09:00] LABS: African American GFR (CKD) 129.2 (60.0-200.0); Albumin 2.9 g/dL (3.8-4.9); Albumin/Globulin Ratio 1.38 (1.60-3.17); BUN/Creat Ratio 7.43 Ratio (12.00-20.00); Blood Urea Nitrogen 5.2 mg/dL (9.0-27.0); Globulin 2.1 g/dL (1.6-3.3); Non-African American GFR(CKD) 111.5 (60.0-200.0); Potassium 3.4 mmol/L (3.5-5.5); Total Bilirubin 0.8 mg/dL (0.30-1.20)
[2021-05-21 09:10] LABS: HGB 10.1 g/dL (12.0-15.0); MCH 35.8 pg (27.0-32.0); MCHC 33.7 g/dL (32.0-37.0); MCV 106.4 fL (80.0-97.0); Platelet Count 175 X 10*3/uL (140-440); RBC 2.82 X 10*6/uL (4.10-5.20); RDW 15.3 % (11.5-14.5)
--- NOTE | 2021-05-21 10:03 | P.PN ---
Subjective Progress Note Date: 05/21/21 Patient states that she continues to have episodes of nausea Patient is not complaining of chest pain or shortness of breath at this time Constitutional: No acute distress, conversant, pleasant Eyes: Anicteric sclerae, moist conjunctiva, no lid-lag PERRLA ENMT: NC/AT Oropharynx clear, no erythema, exudates Neck: Supple, FROM, no masses, or JVD No carotid bruits No thyromegaly Lungs: Clear to auscultation Clear to percussion Normal respiratory effort, no accessory muscle use Cardiovascular: Heart regular in rate and rhythm, No murmurs, gallops, or rubs No peripheral edema Abdominal: Soft Nontender, no guarding, rebound or rigidity Abdomen moving with respiration Normoactive bowel sounds No hepatomegaly, No splenomegaly No palpable mass No abdominal wall hernia noted Skin: Normal temperature, tone, texture, turgor No induration No subcutaneous nodules No rash, lesions No ulcers Extremities: No digital cyanosis No clubbing Pedal pulses intact and symmetrical Radial pulses intact and symmetrical Normal gait and station No calf tenderness Psychiatric:Alert and oriented to person, place and time Appropriate affect Intact judgement Neuro: Muscles Strength 5/5 in all 4 extremities Sensation to light touch grossly present throughout Cranial nerves II-XII grossly intact No focal sensory deficits Assessment and plan Vomiting was started patient on IV hydration likely won't is related to alcohol withdrawals patient may need to have an EGD as an inpatient or outpatient Question about biliary sludge will consult surgery Alcohol withdrawals keep the patient on Ativan Tachycardia likely due to withdrawals we'll check cardiac enzymes and monitor We'll continue to monitor Objective - Vital Signs Vital signs: Vital Signs Temp 98.4 F 05/21/21 04:30 Pulse 98 05/21/21 04:30 Resp 18 05/21/21 04:30 BP 103/68 05/21/21 04:30 Pulse Ox 97 05/21/21 04:30 Intake & Output 05/20/21 05/21/21 05/21/21 18:59 06:59 18:59 Intake Total 100 Balance 100 Weight 56.699 kg Intake: Oral 100 Other: Voiding Method Toilet - Labs CBC & Chem 7: 05/21/21 06:27 05/21/21 06:27 Labs: Abnormal Lab Results - Last 24 Hours (Table) 01/05/20/21 05/20/21 Range/Units 11:28 11:28 11:28 WBC 12.1 H (3.8-10.6) k/uL RBC 3.74 L (3.80-5.40) m/uL Hgb (12.0-15.0) g/dL Hct (37.2-46.3) % MCV 109.4 H (80.0-100.0) fL MCH 36.1 H (25.0-35.0) pg RDW (11.5-14.5) % Neutrophils # 9.3 H (1.3-7.7) k/uL Macrocytosis Marked A PT 12.5 H (9.0-12.0) sec INR 1.2 H (<1.2) Sodium (137-145) mmol/L Potassium (3.5-5.1) mmol/L Chloride (98-107) mmol/L Carbon Dioxide (22-30) mmol/L BUN (7-17) mg/dL BUN/Creatinine Ratio (12.00-20.00) Ratio Glucose (74-99) mg/dL Calcium (8.7-10.3) mg/dL Magnesium (1.6-2.3) mg/dL Total Bilirubin (0.2-1.3) mg/dL AST (14-36) U/L ALT (4-34) U/L Alkaline Phosphatase (38-126) U/L Total Protein (6.2-8.2) g/dL Albumin (3.8-4.9) g/dL Albumin/Globulin Ratio (1.60-3.17) g/dL Lipase (23-300) U/L Urine Appearance Turbid H (Clear) Urine Protein 1+ H (Negative) Urine Glucose (UA) Trace H (Negative) Urine Ketones Trace H (Negative) Urine Bilirubin 1+ H (Negative) Ur Leukocyte Esterase Small H (Negative) Urine RBC 8 H (0-5) /hpf Urine WBC 12 H (0-5) /hpf Urine WBC Clumps Few H (None) /hpf Ur Squamous Epith Cells 30 H (0-4) /hpf Urine Bacteria Occasional H (None) /hpf Hyaline Casts 512 H (0-2) /lpf Urine Mucus Many H (None) /hpf 05/20/21 05/21/21 05/21/21 Range/Units 11:28 06:27 06:27 WBC (3.8-10.6) k/uL RBC 2.82 L (3.80-5.40) m/uL Hgb 10.1 L (12.0-15.0) g/dL Hct 30.0 L (37.2-46.3) % MCV 106.4 H (80.0-100.0) fL MCH 35.8 H (25.0-35.0) pg RDW 15.3 H (11.5-14.5) % Neutrophils # (1.3-7.7) k/uL Macrocytosis PT (9.0-12.0) sec INR (<1.2) Sodium 132 L 134 L (137-145) mmol/L Potassium 3.2 L 3.4 L (3.5-5.1) mmol/L Chloride 92 L (98-107) mmol/L Carbon Dioxide 20 L (22-30) mmol/L BUN 5 L 5.2 L (7-17) mg/dL BUN/Creatinine Ratio 7.43 L (12.00-20.00) Ratio Glucose 151 H (74-99) mg/dL Calcium 8.0 L (8.7-10.3) mg/dL Magnesium 1.2 L (1.6-2.3) mg/dL Total Bilirubin 2.2 H (0.2-1.3) mg/dL AST 208 H 105 H (14-36) U/L ALT 50 H (4-34) U/L Alkaline Phosphatase 132 H (38-126) U/L Total Protein 5.0 L (6.2-8.2) g/dL Albumin 2.9 L (3.8-4.9) g/dL Albumin/Globulin Ratio 1.38 L (1.60-3.17) g/dL Lipase 21 L (23-300) U/L Urine Appearance (Clear) Urine Protein (Negative) Urine Glucose (UA) (Negative) Urine Ketones (Negative) Urine Bilirubin (Negative) Ur Leukocyte Esterase (Negative) Urine RBC (0-5) /hpf Urine WBC (0-5) /hpf Urine WBC Clumps (None) /hpf Ur Squamous Epith Cells (0-4) /hpf Urine Bacteria (None) /hpf Hyaline Casts (0-2) /lpf Urine Mucus (None) /hpf Microbiology - Last 24 Hours (Table) 05/20/21 11:28 Urine Culture - Preliminary Urine,Voided
[2021-05-21 10:18] LABS: Basophils # (M) 0 X 10*3/uL (0.00-0.10); Eosinophils # (M) 0.11 X 10*3/uL (0.04-0.35); Lymphocytes # (M) 1.62 X 10*3/uL (0.90-5.00); Macrocytosis (M) 2+; Monocytes # (M) 0.22 X 10*3/uL (0.20-1.00); Neutrophils # (M) 3.46 X 10*3/uL (2.00-8.90); Neutrophils % (M) 64 %
[2021-05-21] MEDS: PANTOPRAZOLE 40 MG/10 ML VIAL IVP SCH ×2 (11:03→21:34)
[2021-05-21] MEDS: THIAMINE 100 MG TAB PO SCH ×2 (11:04→17:46)
--- NOTE | 2021-05-21 13:06 | P.GSCN ---
History of Present Illness Consult date: 05/21/21 Reason for Consult: Nausea, vomiting, right quadrant pain History of present illness: This a 35-year-old female was admitted to hospital with nausea vomiting right quadrant pain. Patient's ultrasound shows evidence of cholelithiasis. Patient currently feels her pain is improved. Past Medical History Past Medical History: Hypertension, Renal Disease Additional Past Medical History / Comment(s): ETOH abuse, gout bilateral feet, occasional nausea. History of Any Multi-Drug Resistant Organisms: None Reported Past Surgical History: Section Past Anesthesia/Blood Transfusion Reactions: No Reported Reaction Smoking Status: Current every day smoker - Past Family History Father Family Medical History: Hyperlipidemia, Hypertension Mother Family Medical History: Cancer Additional Family Medical History / Comment(s): Lung cancer Medications and Allergies Home Medications Medication Instructions Recorded Confirmed Type Allopurinol [Zyloprim] 300 mg PO HS 05/20/21 05/20/21 History Losartan [Cozaar] 50 mg PO HS 05/20/21 05/20/21 History Ondansetron Odt [Zofran Odt] 4 mg PO Q12H PRN 05/20/21 05/20/21 History Allergies Allergy/AdvReac Type Severity Reaction Status Date / Time No Known Allergies Allergy Verified 05/20/21 11:38 Surgical - Exam Vital Signs Temp Pulse Resp BP Pulse Ox 98.5 F 136 H 22 140/75 100 05/20/21 10:28 05/20/21 10:28 05/20/21 10:28 05/20/21 10:28 05/20/21 10:28 - General well developed, well nourished, no distress - Eyes PERRL - ENT normal pinna - Neck no masses - Respiratory normal expansion - Cardiovascular Rhythm: regular - Abdomen Abdomen: soft, non tender Results - Labs 05/21/21 06:27 05/21/21 06:27 Abnormal Lab Results - Last 24 Hours (Table) 05/21/21 05/21/21 Range/Units 06:27 06:27 RBC 2.82 L (4.10-5.20) X 10*6/uL Hgb 10.1 L (12.0-15.0) g/dL Hct 30.0 L (37.2-46.3) % MCV 106.4 H (80.0-97.0) fL MCH 35.8 H (27.0-32.0) pg RDW 15.3 H (11.5-14.5) % Sodium 134 L (135-145) mmol/L Potassium 3.4 L (3.5-5.5) mmol/L BUN 5.2 L (9.0-27.0) mg/dL BUN/Creatinine Ratio 7.43 L (12.00-20.00) Ratio Calcium 8.0 L (8.7-10.3) mg/dL AST 105 H (13-35) U/L Total Protein 5.0 L (6.2-8.2) g/dL Albumin 2.9 L (3.8-4.9) g/dL Albumin/Globulin Ratio 1.38 L (1.60-3.17) g/dL Microbiology - Last 24 Hours (Table) 05/20/21 11:28 Urine Culture - Preliminary Urine,Voided Diabetes panel 05/21/21 Range/Units 06:27 Sodium 134 L (135-145) mmol/L Potassium 3.4 L (3.5-5.5) mmol/L Chloride 100 (96-109) mmol/L Carbon Dioxide 23.0 (20.0-27.5) mmol/L BUN 5.2 L (9.0-27.0) mg/dL Creatinine 0.7 (0.6-1.5) mg/dL Glucose 86 (70-110) mg/dL Calcium 8.0 L (8.7-10.3) mg/dL AST 105 H (13-35) U/L ALT 23 (8-44) U/L Alkaline Phosphatase 90 (41-126) U/L Total Protein 5.0 L (6.2-8.2) g/dL Albumin 2.9 L (3.8-4.9) g/dL Calcium panel 05/21/21 Range/Units 06:27 Calcium 8.0 L (8.7-10.3) mg/dL Albumin 2.9 L (3.8-4.9) g/dL Pituitary panel 05/21/21 Range/Units 06:27 Sodium 134 L (135-145) mmol/L Potassium 3.4 L (3.5-5.5) mmol/L Chloride 100 (96-109) mmol/L Carbon Dioxide 23.0 (20.0-27.5) mmol/L BUN 5.2 L (9.0-27.0) mg/dL Creatinine 0.7 (0.6-1.5) mg/dL Glucose 86 (70-110) mg/dL Calcium 8.0 L (8.7-10.3) mg/dL Adrenal panel 05/21/21 Range/Units 06:27 Sodium 134 L (135-145) mmol/L Potassium 3.4 L (3.5-5.5) mmol/L Chloride 100 (96-109) mmol/L Carbon Dioxide 23.0 (20.0-27.5) mmol/L BUN 5.2 L (9.0-27.0) mg/dL Creatinine 0.7 (0.6-1.5) mg/dL Glucose 86 (70-110) mg/dL Calcium 8.0 L (8.7-10.3) mg/dL Total Bilirubin 0.80 (0.30-1.20) mg/dL AST 105 H (13-35) U/L ALT 23 (8-44) U/L Alkaline Phosphatase 90 (41-126) U/L Total Protein 5.0 L (6.2-8.2) g/dL Albumin 2.9 L (3.8-4.9) g/dL Assessment and Plan Assessment: Nausea vomiting, cholelithiasis Patient will be scheduled for laparoscopically cholecystectomy on Sunday.
[2021-05-21] MEDS: SODIUM CHLORIDE 0.9% 1,000 ML IV SCH ×3 (20:54→23:14)
[2021-05-22] MEDS: THIAMINE 100 MG TAB PO SCH ×2 (09:17→16:42)
[2021-05-22] MEDS: PANTOPRAZOLE 40 MG/10 ML VIAL IVP SCH ×2 (09:18→21:34)
[2021-05-22] MEDS: SODIUM CHLORIDE 0.9% 1,000 ML IV SCH ×3 (09:20→21:37)
[2021-05-22 11:17] LABS: Basophils # (A) 0.04 X 10*3/uL (0.00-0.10); Basophils % (A) 0.7 %; Eosinophils % (A) 3.3 %; HGB 10.3 g/dL (12.0-15.0); Lymphocytes # (A) 1.79 X 10*3/uL (0.90-5.00); Lymphocytes % (A) 29.6 %; MCH 35.4 pg (27.0-32.0); MCHC 33.2 g/dL (32.0-37.0); MCV 106.5 fL (80.0-97.0); Mean Platelet Volume 9.8 fL (9.5-12.2); Monocytes # (A) 0.54 X 10*3/uL (0.20-1.00); Monocytes % (A) 8.9 %; Neutrophils # (A) 3.47 X 10*3/uL (1.80-7.70); Neutrophils % (A) 57.3 %; Platelet Count 194 X 10*3/uL (140-440); RBC 2.91 X 10*6/uL (4.10-5.20); RDW 14.8 % (11.5-14.5); WBC 6.05 X 10*3/uL (4.50-10.00)
[2021-05-22 11:21] LABS: African American GFR (CKD) 129.2 (60.0-200.0); Albumin 2.7 g/dL (3.8-4.9); Albumin/Globulin Ratio 1.35 (1.60-3.17); Anion Gap 10.7 mmol/L (10.00-18.00); BUN/Creat Ratio 7.57 Ratio (12.00-20.00); Blood Urea Nitrogen 5.3 mg/dL (9.0-27.0); Calcium 7.9 mg/dL (8.7-10.3); Carbon Dioxide 21.3 mmol/L (20.0-27.5); Non-African American GFR(CKD) 111.5 (60.0-200.0); Potassium 3.6 mmol/L (3.5-5.5); Total Bilirubin 0.6 mg/dL (0.30-1.20); Total Protein 4.7 g/dL (6.2-8.2)
--- NOTE | 2021-05-22 12:21 | P.PN ---
Subjective Progress Note Date: 05/22/21 Pt reports significant improvement in pain. However, still notes that food triggers her abdominal pain even when eating in small amounts. Objective - Vital Signs Vital signs: Vital Signs Temp 98.1 F 05/22/21 04:35 Pulse 99 05/22/21 04:35 Resp 18 05/22/21 04:35 BP 122/84 05/22/21 04:35 Pulse Ox 92 L 05/22/21 04:35 Intake & Output 05/21/21 05/22/21 05/22/21 18:59 06:59 18:59 Intake Total 1800 100 Balance 1800 100 Intake: Intake, IV Titration 1200 Amount Sodium Chloride 0.9% 1, 1200 000 ml @ 130 mls/hr IV . Q7H42M [facility] Rx#:[id number] Oral 600 100 Other: Voiding Method Toilet Toilet Toilet # Voids 3 1 # Bowel Movements 1 - Exam Gen: awake, alert HEENT: normocephalic, atraumatic, good hearing acuity, moist mucous membranes Resp: good air exchange, breathing comfortably with no accessory muscle use CVS: good distal perfusion x 4, GI: Epigastric tenderness to palpation : no SPT, no CVAT, bueno catheter not present MSK: no pitting edema, no clubbing Neuro: non-focal, moving all extremities Psych: cooperative, euthymic mood - Labs CBC & Chem 7: 05/22/21 07:37 05/22/21 07:37 Labs: Abnormal Lab Results - Last 24 Hours (Table) 05/22/21 05/22/21 Range/Units 07:37 07:37 RBC 2.91 L (4.10-5.20) X 10*6/uL Hgb 10.3 L (12.0-15.0) g/dL Hct 31.0 L (37.2-46.3) % MCV 106.5 H (80.0-97.0) fL MCH 35.4 H (27.0-32.0) pg RDW 14.8 H (11.5-14.5) % BUN 5.3 L (9.0-27.0) mg/dL BUN/Creatinine Ratio 7.57 L (12.00-20.00) Ratio Calcium 7.9 L (8.7-10.3) mg/dL AST 88 H (13-35) U/L Total Protein 4.7 L (6.2-8.2) g/dL Albumin 2.7 L (3.8-4.9) g/dL Albumin/Globulin Ratio 1.35 L (1.60-3.17) g/dL Microbiology - Last 24 Hours (Table) 05/20/21 11:28 Urine Culture - Final Urine,Voided Assessment and Plan Assessment: Alcohol withdrawal syndrome Alcohol abuse disorder -Admit inpatient, telemetry -[facility] protocol -Ativan as needed -Thiamine, folate, multivitamin -Cessation counseling -Discharge on Antabuse versus naltrexone Cholelithiasis Biliary colic -Surgery consulted -Plan for cholecystectomy 05/23 Gout Hypertension -Home medications were reviewed and reconciled Patient is a full code DVT prophylaxis is early ambulation
--- NOTE | 2021-05-22 12:36 | P.PN ---
Progress Note - Text Progress Note Date: 05/22/21 Patient feels better today. On exam vital signs are stable. Abdomen soft. Patient will undergo laparoscopic cholecystectomy in the a.m.
[2021-05-22] MEDS ORDERED: ACETAMINOPHEN TAB 325 MG TAB PO PRN (15:39)
[2021-05-22] MEDS ORDERED: polyethylene glycoL 3350 17 GM POWD.PACK PO STA (19:27)
[2021-05-22] MEDS ORDERED: SIMETHICONE 80 MG CHEWABLE PO PRN (19:27)
[2021-05-22] MEDS: allopurinoL 300 MG TAB PO SCH (21:34)
[2021-05-22] MEDS: LOSARTAN 50 MG TAB PO SCH (21:34)
[2021-05-23] MEDS: SODIUM CHLORIDE 0.9% 1,000 ML IV SCH ×3 (05:01→19:32)
[2021-05-23 07:29] LABS: Basophils % (A) 0 %; Eosinophils # (A) 0.3 k/uL (0-0.7); Eosinophils % (A) 3 %; HCT 34.8 % (34.0-46.0); HGB 11.4 gm/dL (11.4-16.0); Lymphocytes # (A) 1.8 k/uL (1.0-4.8); Lymphocytes % (A) 23 %; MCH 36.5 pg (25.0-35.0); MCHC 32.7 g/dL (31.0-37.0); MCV 111.5 fL (80.0-100.0); Macrocytosis Marked; Mean Platelet Volume 7.4; Monocytes # (A) 0.5 k/uL (0-1.0); Monocytes % (A) 7 %; Neutrophils # (A) 5.2 k/uL (1.3-7.7); Neutrophils % (A) 66 %; Platelet Count 228 k/uL (150-450); RBC 3.13 m/uL (3.80-5.40); RDW 14.3 % (11.5-15.5); WBC 7.8 k/uL (3.8-10.6)
[2021-05-23 07:46] LABS: ALT 19 U/L (4-34); AST 80 U/L (14-36); African American GFR (CKD) >90 (>60 ml/min/1.73 sqM); Albumin 2.6 g/dL (3.5-5.0); Albumin/Globulin Ratio 0.9; Alkaline Phosphatase 88 U/L (38-126); Anion Gap 5 mmol/L; Bilirubin,Unconjugated 0.5 mg/dL (0.0-1.1); Blood Urea Nitrogen 4 mg/dL (7-17); Calcium 8.3 mg/dL (8.4-10.2); Carbon Dioxide 21 mmol/L (22-30); Chloride 111 mmol/L (98-107); Globulin 2.8 g/dL; Glucose 83 mg/dL (74-99); Magnesium 1.5 mg/dL (1.6-2.3); Non-African American GFR(CKD) >90 (>60 ml/min/1.73 sqM); Potassium 3.9 mmol/L (3.5-5.1); Sodium 137 mmol/L (137-145); Total Bilirubin 0.8 mg/dL (0.2-1.3); Total Protein 5.4 g/dL (6.3-8.2)
[2021-05-23] MEDS: MORPHINE SULFATE 4 MG/ML SYRINGE IVP PRN ×3 (09:08→21:38)
[2021-05-23] MEDS: LORazepam 2 MG/ML INJ IV PRN (09:15)
[2021-05-23] MEDS: THIAMINE 100 MG TAB PO SCH ×2 (09:28→17:22)
[2021-05-23] MEDS: PANTOPRAZOLE 40 MG/10 ML VIAL IVP SCH ×2 (09:28→20:54)
[2021-05-23] MEDS: FOLIC ACID 1 MG TAB PO SCH (09:29)
[2021-05-23] MEDS: MULTIVITAMINS, THERA 1 EACH TAB PO SCH (09:29)
--- NOTE | 2021-05-23 10:38 | P.PN ---
Subjective Progress Note Date: 05/23/21 Pt with significant abdominal and chest pain today, which she says is worse with inspiration. The chest pain is inducible with palpation. Objective - Vital Signs Vital signs: Vital Signs Temp 98.6 F 05/23/21 04:21 Pulse 75 05/23/21 04:21 Resp 16 05/23/21 04:21 BP 127/90 05/23/21 04:21 Pulse Ox 96 05/23/21 04:21 Intake & Output 05/22/21 05/23/21 05/23/21 18:59 06:59 18:59 Intake Total 1800 1200 Balance 1800 1200 Intake: Intake, IV Titration 1200 1200 Amount Sodium Chloride 0.9% 1, 1200 1200 000 ml @ 130 mls/hr IV . Q7H42M [facility] Rx#:[id number] Oral 600 Other: Voiding Method Toilet Toilet # Voids 2 3 # Bowel Movements 1 - Exam Gen: awake, alert HEENT: normocephalic, atraumatic, good hearing acuity, moist mucous membranes Resp: good air exchange, breathing comfortably with no accessory muscle use CVS: good distal perfusion x 4, GI: Epigastric tenderness to palpation : no SPT, no CVAT, bueno catheter not present MSK: no pitting edema, no clubbing Neuro: non-focal, moving all extremities Psych: cooperative, euthymic mood - Labs CBC & Chem 7: 05/23/21 06:55 05/23/21 06:55 Labs: Abnormal Lab Results - Last 24 Hours (Table) 05/22/21 05/22/21 05/23/21 Range/Units 07:37 07:37 06:55 RBC 2.91 L 3.13 L (4.10-5.20) X 10*6/uL Hgb 10.3 L (12.0-15.0) g/dL Hct 31.0 L (37.2-46.3) % MCV 106.5 H 111.5 H (80.0-97.0) fL MCH 35.4 H 36.5 H (27.0-32.0) pg RDW 14.8 H (11.5-14.5) % Macrocytosis Marked A Chloride (98-107) mmol/L Carbon Dioxide (22-30) mmol/L BUN 5.3 L (9.0-27.0) mg/dL BUN/Creatinine Ratio 7.57 L (12.00-20.00) Ratio Calcium 7.9 L (8.7-10.3) mg/dL Magnesium (1.6-2.3) mg/dL AST 88 H (13-35) U/L Total Protein 4.7 L (6.2-8.2) g/dL Albumin 2.7 L (3.8-4.9) g/dL Albumin/Globulin Ratio 1.35 L (1.60-3.17) g/dL 05/23/21 Range/Units 06:55 RBC (4.10-5.20) X 10*6/uL Hgb (12.0-15.0) g/dL Hct (37.2-46.3) % MCV (80.0-97.0) fL MCH (27.0-32.0) pg RDW (11.5-14.5) % Macrocytosis Chloride 111 H (98-107) mmol/L Carbon Dioxide 21 L (22-30) mmol/L BUN 4 L (9.0-27.0) mg/dL BUN/Creatinine Ratio (12.00-20.00) Ratio Calcium 8.3 L (8.7-10.3) mg/dL Magnesium 1.5 L (1.6-2.3) mg/dL AST 80 H (13-35) U/L Total Protein 5.4 L (6.2-8.2) g/dL Albumin 2.6 L (3.8-4.9) g/dL Albumin/Globulin Ratio (1.60-3.17) g/dL Microbiology - Last 24 Hours (Table) 05/20/21 11:28 Urine Culture - Final Urine,Voided Assessment and Plan Assessment: Alcohol withdrawal syndrome Alcohol abuse disorder -Admit inpatient, telemetry -[facility] protocol -Ativan as needed -Thiamine, folate, multivitamin -Cessation counseling -Discharge on Antabuse versus naltrexone Cholelithiasis Biliary colic -Surgery consulted -Plan for cholecystectomy 05/23 -morphine PRN Gout Hypertension -Home medications were reviewed and reconciled Patient is a full code DVT prophylaxis is early ambulation
[2021-05-23] MEDS ORDERED: IV FLUID CONTINUATION 1,000 ML IV ONE (13:49)
[2021-05-23] MEDS ORDERED: ONDANSETRON 4 MG/2 ML VIAL IVP ONE (13:54)
[2021-05-23] MEDS ORDERED: MIDAZOLAM 2 MG/2 ML VIAL ONE (14:22)
[2021-05-23] MEDS ORDERED: HYDROmorphone (PF) 1 MG/ML ONE (14:22)
[2021-05-23] MEDS ORDERED: NEOSTIGMINE 1 MG/ML 10 ML VIAL ONE (14:22)
[2021-05-23] MEDS ORDERED: KETOROLAC 15 MG/ML 1 ML VIAL ONE (14:22)
[2021-05-23] MEDS ORDERED: ROCURONIUM 10 MG/ML (5 ML VIAL) IV ONE (14:22)
[2021-05-23] MEDS ORDERED: GLYCOPYRROLATE 0.2 MG/ML 2 ML VIAL ONE (14:22)
[2021-05-23] MEDS ORDERED: SUCCINYLCHOLINE CHLORIDE 100 MG/5 ML SYR IV ONE (14:22)
[2021-05-23] MEDS ORDERED: LIDOCAINE 1% INJ 10MG/ML (20 ML MDV) ONE (14:22)
[2021-05-23] MEDS ORDERED: fentaNYL (PF) 50 MCG/ML 2 ML AMP ONE (14:22)
[2021-05-23] MEDS ORDERED: KETAMINE 10 MG/ML 20 ML VIAL ONE (14:22)
[2021-05-23] MEDS ORDERED: PROPOFOL 10 MG/ML 20 ML VIAL IV ONE (14:22)
[2021-05-23] MEDS ORDERED: SODIUM CHLORIDE 0.9% 50 ML with ceFAZolin 2,000 MG IV ONE ×2 (14:48)
[2021-05-23] MEDS ORDERED: BUPIVACAIN-EPI 0.25%-1:200,000 30 ML VIAL SQ ONE (14:50)
[2021-05-23] MEDS ORDERED: LACTATED RINGERS 1,000 ML IV ONE (14:50)
--- NOTE | 2021-05-23 15:27 | P.OP ---
Date of Procedure: 05/23/21 Preoperative Diagnosis: Acute cholecystitis Postoperative Diagnosis: Acute cholecystitis Procedure(s) Performed: Laparoscopic cholecystectomy Anesthesia: DYAN Surgeon: Andres Mayfield Estimated Blood Loss (ml): 5 Pathology: other (Gallbladder) Condition: stable Disposition: PACU Description of Procedure: The patient was placed on the operating table. The patient received a general endotracheal tube anesthesia. The patients abdomen was prepped and draped in the usual sterile fashion. Through an infraumbilical stab incision, the fascia of the anterior abdominal wall was grasped with a pair of Kochers and then the Veress needle was placed in the peritoneal cavity. Position of the Veress needle was confirmed with positive drop test. The abdomen was then insufflated. After adequate insufflation, the 10 mm trocar was placed in the peritoneal cavity. Following this the laparoscope was placed in the peritoneal cavity. The patient was placed in the head-up, right side up position and then a 5 mm trocar was placed in the right lateral and right subcostal position under direct visualization. A 8 mm trocar was placed in the epigastric position. The gallbladder was grasped in the fundus and infundibulum. Traction on the gallbladder was placed in the lateral and the cephalad positions. The triangle of Calot was visualized.. The cystic duct was bluntly dissected until the union of the cystic duct and common bile duct was seen. A critical view of safety was achieved. The cystic duct was then divided and sealed with the Harmonic scissors. A PDS Endoloop was then placed throughout the cystic duct stump. The cystic artery divided and sealed with the Harmonic scissors. The gallbladder was then removed from the liver bed using Harmonic scissors. The gallbladder was then extracted through the epigastric port site. Operative field was checked for any bleeding spots and Harmonic scissors was used to coagulate the liver bed. The abdomen was irrigated. The trocars were removed. The skin was closed using interrupted 3-0 Vicryl suture. Dermabond dressing were applied. The patient tolerated the procedure well.
[2021-05-23] MEDS ORDERED: diphenhydrAMINE 50 MG/ML 1 ML VIAL IVP ONE (15:31)
[2021-05-23] MEDS ORDERED: HYDROmorphone 0.5 MG/0.5 ML SYRINGE IVP ONE ×2 (15:40→16:23)
[2021-05-23] MEDS ORDERED: hydrALAZINE HCL 20 MG/ML 1 ML VIAL IVP ONE (16:20)
[2021-05-23] MEDS: LOSARTAN 50 MG TAB PO SCH (20:54)
[2021-05-23] MEDS: allopurinoL 300 MG TAB PO SCH (20:54)
[2021-05-24] MEDS: MORPHINE SULFATE 4 MG/ML SYRINGE IVP PRN ×2 (02:09→07:38)
[2021-05-24] MEDS: SODIUM CHLORIDE 0.9% 1,000 ML IV SCH ×2 (04:06→11:59)
[2021-05-24] MEDS: MULTIVITAMINS, THERA 1 EACH TAB PO SCH (07:37)
[2021-05-24] MEDS: PANTOPRAZOLE 40 MG/10 ML VIAL IVP SCH (07:37)
[2021-05-24] MEDS: THIAMINE 100 MG TAB PO SCH (07:37)
[2021-05-24] MEDS: FOLIC ACID 1 MG TAB PO SCH (07:37)
[2021-05-24 07:58] VITALS: RESP 16
[2021-05-24 09:41] LABS: Basophils # (A) 0.01 X 10*3/uL (0.00-0.10); Basophils % (A) 0.1 %; Eosinophils # (A) 0 X 10*3/uL (0.04-0.35); Eosinophils % (A) 0 %; HCT 34.9 % (37.2-46.3); HGB 11.7 g/dL (12.0-15.0); Lymphocytes # (A) 1.29 X 10*3/uL (0.90-5.00); Lymphocytes % (A) 15.2 %; MCHC 33.5 g/dL (32.0-37.0); MCV 107.4 fL (80.0-97.0); Monocytes # (A) 0.55 X 10*3/uL (0.20-1.00); Monocytes % (A) 6.5 %; Neutrophils # (A) 6.61 X 10*3/uL (1.80-7.70); Neutrophils % (A) 77.8 %; Platelet Count 227 X 10*3/uL (140-440); RBC 3.25 X 10*6/uL (4.10-5.20); RDW 15.6 % (11.5-14.5); WBC 8.49 X 10*3/uL (4.50-10.00)
[2021-05-24 09:52] LABS: African American GFR (CKD) 125.5 (60.0-200.0); Albumin 3.1 g/dL (3.8-4.9); Albumin/Globulin Ratio 1.27 (1.60-3.17); Anion Gap 10.4 mmol/L (10.00-18.00); BUN/Creat Ratio 5.1 Ratio (12.00-20.00); Bilirubin, Conjugated 0.26 mg/dL (0.20-0.40); Bilirubin,Unconjugated 0.25 mg/dL (0.20-1.00); Blood Urea Nitrogen 3.7 mg/dL (9.0-27.0); Calcium 8.6 mg/dL (8.7-10.3); Carbon Dioxide 21.2 mmol/L (20.0-27.5); Globulin 2.5 g/dL (1.6-3.3); Magnesium 1.5 mg/dL (1.5-2.4); Non-African American GFR(CKD) 108.3 (60.0-200.0); Potassium 4.3 mmol/L (3.5-5.5); Total Bilirubin 0.5 mg/dL (0.30-1.20); Total Protein 5.6 g/dL (6.2-8.2)
[2021-05-24 10:22] VITALS: BMI 24.4
[2021-05-24 12:04] VITALS: BP 146/93; PULSE 95; TEMP 98.5
--- NOTE | 2021-05-24 13:01 | P.PN ---
Subjective Progress Note Date: 05/24/21 CHIEF COMPLAINT: Acute cholecystitis HISTORY OF PRESENT ILLNESS: Patient is status post laparoscopic cholecystectomy. Patient tolerated surgery well. Pain is controlled. She is tolerating diet. She is up and ambulating. She is having flatus. Denies any nausea or vomiting. Afebrile. WBC 8.49 PHYSICAL EXAM: VITAL SIGNS: Reviewed. GENERAL: Well-developed in no acute distress. HEENT: No sclera icterus. Extraocular movements grossly intact. Moist buccal mucosa. Head is atraumatic, normocephalic. ABDOMEN: Soft. Nondistended. Incision sites clean dry and intact NEUROLOGIC: Alert and oriented. Cranial nerves II through XII grossly intact. ASSESSMENT: 1. Acute cholecystitis status post laparoscopic cholecystectomy PLAN: -Patient is stable from surgical standpoint for discharge -Patient to follow up with Dr. han in 1 week Physician Comber Setter note has been reviewed by physician. Signing provider agrees with the documented findings, assessment, and plan of care. Objective - Vital Signs Vital signs: Vital Signs Temp 98.5 F 05/24/21 12:03 Pulse 95 05/24/21 12:03 Resp 16 05/24/21 12:03 BP 146/93 05/24/21 12:03 Pulse Ox 95 05/24/21 04:10 Intake & Output 05/23/21 05/24/21 05/24/21 18:59 06:59 18:59 Intake Total 575 1500 Output Total 5 Balance 570 1500 Weight 56.699 kg 56.699 kg Intake: IV 575 Intake, IV Titration 900 Amount Sodium Chloride 0.9% 1, 900 000 ml @ 130 mls/hr IV . Q7H42M [facility] Rx#:[id number] Oral 600 Output: Estimated Blood Loss 5 Other: Voiding Method Toilet Toilet # Voids 1 3 - Labs CBC & Chem 7: 05/24/21 07:07 05/24/21 07:07 Labs: Abnormal Lab Results - Last 24 Hours (Table) 05/24/21 05/24/21 Range/Units 07:07 07:07 RBC 3.25 L (4.10-5.20) X 10*6/uL Hgb 11.7 L (12.0-15.0) g/dL Hct 34.9 L (37.2-46.3) % MCV 107.4 H (80.0-97.0) fL MCH 36.0 H (27.0-32.0) pg RDW 15.6 H (11.5-14.5) % Eosinophils # 0 L (0.04-0.35) X 10*3/uL BUN 3.7 L (9.0-27.0) mg/dL BUN/Creatinine Ratio 5.10 L (12.00-20.00) Ratio Calcium 8.6 L (8.7-10.3) mg/dL AST 67 H (13-35) U/L Total Protein 5.6 L (6.2-8.2) g/dL Albumin 3.1 L (3.8-4.9) g/dL Albumin/Globulin Ratio 1.27 L (1.60-3.17) g/dL
--- NOTE | 2021-05-24 15:11 | P.DS ---
Providers Date of admission: 05/20/21 14:46 Expected date of discharge: 05/24/21 Attending physician: Briana Barros MD Consults: 05/20/21 14:18 Consult Physician Routine Consulting Provider: Andres Mayfield Consult Reason/Comments: vomiting Do you want consulting provider notified?: Yes Primary care physician: Kt Leach [facility] Course: Alcohol withdrawal syndrome Alcohol abuse disorder -Admitted inpatient, telemetry. Placed in CIWA protocol and provided ativan as needed. Thiamine, folate, and MVI added as well. Pt needed several doses of a tivan over first night, but withdrawal was quickly controlled thereafter. Pt was discharged with resources for cessation, as well as prescription for antabuse. -CIWA protocol -Ativan as needed -Thiamine, folate, multivitamin -Cessation counseling -Discharge on Antabuse versus naltrexone Acute Cholecystitis -Surgery consulted based on RUQ US findings of cholelithiasis and concern for cholecystitis based on exam. She was provided morphine PRN for pain control and underwent successful cholecystectomy on 05/23, recovering well with no pain by 05/24 except for mild incisional pain. Pt will f/u with surgery on discharge. Gout Hypertension -Home medications were reviewed and reconciled, no changes to chronic home meds. I spent 34 minutes coordinating this complex discharge. Assessment: Gen: awake, alert HEENT: normocephalic, atraumatic, good hearing acuity, moist mucous membranes Resp: good air exchange, breathing comfortably with no accessory muscle use CVS: good distal perfusion x 4, GI: Epigastric tenderness to palpation : no SPT, no CVAT, bueno catheter not present MSK: no pitting edema, no clubbing Neuro: non-focal, moving all extremities Psych: cooperative, euthymic mood Patient Condition at Discharge: Good Plan - Discharge Summary Discharge Rx Participant: No New Discharge Prescriptions: New Disulfiram [Antabuse] 250 mg PO DAILY #30 tablet Multivitamins, Thera [Multivitamin (formulary)] 1 each PO DAILY #30 tab Ibuprofen [Motrin] 600 mg PO Q8HR PRN #30 tab PRN Reason: Pain Folic Acid 1 mg PO DAILY #30 tab Acetaminophen Tab [Tylenol] 650 mg PO Q4HR PRN tab PRN Reason: Fever and/ or Mild Pain Thiamine [Vitamin B-1] 100 mg PO BID-W/MEALS #28 tab Continue Losartan [Cozaar] 50 mg PO HS Ondansetron Odt [Zofran ODT] 4 mg PO Q12H PRN PRN Reason: Nausea Allopurinol [Zyloprim] 300 mg PO HS Discharge Medication List Allopurinol [Zyloprim] 300 mg PO HS 05/20/21 [History] Losartan [Cozaar] 50 mg PO HS 05/20/21 [History] Ondansetron Odt [Zofran ODT] 4 mg PO Q12H PRN 05/20/21 [History] Acetaminophen Tab [Tylenol] 650 mg PO Q4HR PRN tab 05/24/21 [Rx] Disulfiram [Antabuse] 250 mg PO DAILY #30 tablet 05/24/21 [Rx] Folic Acid 1 mg PO DAILY #30 tab 05/24/21 [Rx] Ibuprofen [Motrin] 600 mg PO Q8HR PRN #30 tab 05/24/21 [Rx] Multivitamins, Thera [Multivitamin (formulary)] 1 each PO DAILY #30 tab 05/24/21 [Rx] Thiamine [Vitamin B-1] 100 mg PO BID-W/MEALS #28 tab 05/24/21 [Rx] Follow up Appointment(s)/Referral(s): Kt Leach MD [Primary Care Provider] - 05/27/21 3:15 pm Andres Mayfield MD [STAFF PHYSICIAN] - 05/31/21 3:30 pm Activity/Diet/Wound Care/Special Instructions: No lifting over 10 pounds You may shower. No soaking or tub baths for 2 weeks Very light activity until you are reevaluated at your follow up appointment with your surgeon Discharge Disposition: HOME SELF-CARE
== END 2021-05-24 13:20 | disposition home or self-care (01) | DRG 988 ==
LOC: EC 10:20 → 5NMEDONC 14:46
PROVIDERS: ADMIT Internal Medicine; ATTEND Internal Medicine
PROC: 0FT44ZZ Resection of Gallbladder, Percutaneous Endoscopic Approach (ICD-10-PCS; principal; 2021-05-23 13:30)
DX: F10.239 Alcohol dependence with withdrawal, unspecified (principal); K80.00 Calculus of gallbladder with acute cholecystitis without obstruction; E83.42 Hypomagnesemia; Z20.822 Contact with and (suspected) exposure to COVID-19; E87.6 Hypokalemia; E86.0 Dehydration; I10 Essential (primary) hypertension; K76.9 Liver disease, unspecified; M10.9 Gout, unspecified; N28.9 Disorder of kidney and ureter, unspecified; Z79.899 Other long term (current) drug therapy; F17.200 Nicotine dependence, unspecified, uncomplicated; Z71.6 Tobacco abuse counseling; Z71.41 Alcohol abuse counseling and surveillance of alcoholic; Z87.442 Personal history of urinary calculi; Z98.891 History of uterine scar from previous surgery; Z83.49 Family history of other endocrine, nutritional and metabolic diseases; Z82.49 Family history of ischemic heart disease and other diseases of the circulatory system; Z80.1 Family history of malignant neoplasm of trachea, bronchus and lung
CPT/HCPCS: 36415; 76705; 80048; 80053; 80076; 80320; 81001; 81025; 82150; 83690; 83735; 84484; 85025; 85610; 85730; 87086; 87635; 88304; 93005; 96361; 96374; 96375; 99285

== ENCOUNTER → 2021-05-27 | Outpatient (CLI) | payer OTHER ==
--- NOTE | 2021-05-27 14:32 | US ---
EXAMINATION TYPE: US liver DATE OF EXAM: 05/27/2021 COMPARISON: NONE CLINICAL HISTORY: K70.10 Acute alcoholic liver dz. alcoholic liver disease. Cholecystectomy 05/23/21 EXAM MEASUREMENTS: Liver Length: 14.0 cm Gallbladder Wall: Surgically absent CBD: 0.5 cm Right Kidney: 10.7 x 3.7 x 4.2 cm Pancreas: Tail obscured by overlying bowel gas Liver: attenuating Gallbladder: surgically absent Evidence for sonographic Medina's sign: no CBD: wnl Right Kidney: junctional fat wedge mid/lower cortex as on prior exam incidental finding: small right pleural effusion IMPRESSION: 1. Fatty infiltration of the liver. 2. Postsurgical changes from prior cholecystectomy. 3 small right pleural effusion
== END | disposition home or self-care (01) ==
LOC: RADUSWWP 07:19
PROVIDERS: ATTEND Family Medicine
DX: K76.0 Fatty (change of) liver, not elsewhere classified (principal); J90 Pleural effusion, not elsewhere classified; Z90.49 Acquired absence of other specified parts of digestive tract
CPT/HCPCS: 76705

== ENCOUNTER → 2023-01-03 | Outpatient (CLI) | payer OTHER ==
--- NOTE | 2023-01-04 20:50 | MM ---
Reason for Exam: Screening (asymptomatic). Baseline mammogram. Patient History: Menarche at age 11. First Full-Term at age 21. Patient used Hormonal Contraceptives for 3 years. Paternal grandmother had breast cancer. Maternal aunt had breast cancer. Maternal cousin had breast cancer. Maternal cousin had breast cancer. Last menstrual period: 01/02/2023 Risk Values: Dede 5 year model risk: 0.4%. NCI Lifetime model risk: 9.1%. Prior Study Comparison: Patient's first Mammogram. Tissue Density: The breast tissue is extremely dense which could obscure a lesion on mammography. Findings: Analyzed By CAD. Pattern appears symmetrical. No suspicious groups of microcalcifications, spiculated or lobular masses, architectural distortion or other secondary signs of malignancy are mammographically apparent. Overall Assessment: Negative, BI-RAD 1 Management: Screening Mammogram of both breasts in 1 year. A negative mammogram report should not preclude additional follow up of suspicious palpable abnormalities. Patient should continue monthly self breast exam. A clinical breast exam by your physician is recommended on an annual basis and results should be correlated with mammographic findings. Electronically signed and approved by: Kumar Raya D.O. Radiologis
== END | disposition home or self-care (01) ==
LOC: RADMAMWWP 16:23
PROVIDERS: ATTEND Family Medicine
DX: Z12.31 Encounter for screening mammogram for malignant neoplasm of breast (principal); Z13.220 Encounter for screening for lipoid disorders; Z80.3 Family history of malignant neoplasm of breast
CPT/HCPCS: 77067

== ENCOUNTER → 2023-07-11 | Outpatient (CLI) | payer BC, OTHER ==
--- NOTE | 2023-07-11 13:25 | MM ---
Reason for Exam: Follow-up at short interval from prior study. Last screening mammogram was performed 6 month(s) ago. Patient History: Menarche at age 11. First Full-Term at age 21. Perimenopausal. Patient used Hormonal Contraceptives for 3 years. Paternal grandmother had breast cancer. Maternal aunt had breast cancer. Maternal cousin had breast cancer. Maternal cousin had breast cancer. Risk Values: Dede 5 year model risk: 0.5%. NCI Lifetime model risk: 9.1%. Tissue Density: The breasts are heterogeneously dense, which may obscure small masses. Findings: Analyzed By CAD. Bilateral areas of asymmetric density appears similar to patient's prior study. Palpable marker placed along the 12:00 position of the left breast. Further ultrasound evaluation is recommended. Overall Assessment: Incomplete: need additional imaging evaluation, BI-RAD 0 Management: Diagnostic Breast Ultrasound of the left breast. Electronically signed and approved by: Jasiel Shay M.D. Radiologist
--- NOTE | 2023-07-11 20:22 | USB ---
Reason for Exam: Clinical finding. Patient History: Menarche at age 11. First Full-Term at age 21. Perimenopausal. Patient used Hormonal Contraceptives for 3 years. Paternal grandmother had breast cancer. Maternal aunt had breast cancer. Maternal cousin had breast cancer. Maternal cousin had breast cancer. Risk Values: Dede 5 year model risk: 0.5%. NCI Lifetime model risk: 9.1%. Technique: Method: Targeted. Prior Study Comparison: 01/03/2023 Bilateral MG screening mammo w CAD, [facility]. Findings: The area of palpable concern of the left breast, the axilla of the left breast and the retroareolar of the left breast were scanned. Targeted ultrasound superior aspect of the left breast to the patient's palpable site, 12:00 position, 6 cm from the nipple. Additional scanning of the subareolar region and axilla. At the patient's palpable site, very dense focal fibroglandular tissue is noted. No solid or cystic lesion or axillary lymphadenopathy. Overall Assessment: Probably benign, BI-RAD 3 Management: Diagnostic Mammogram of the left breast in 6 months. Further clinical management of any suspicious palpable areas. A clinical breast exam by your physician is recommended on an annual basis and results should be correlated with mammographic findings. This exam should not preclude additional follow-up of suspicious palpable abnormalities. Results were given to the patient verbally at the time of exam. Electronically signed and approved by: Jasiel Shay M.D. Radiologist
== END | disposition home or self-care (01) ==
LOC: RADMAMWWP 12:40
PROVIDERS: ATTEND Family Medicine
DX: N63.20 Unspecified lump in the left breast, unspecified quadrant (principal); Z80.3 Family history of malignant neoplasm of breast
CPT/HCPCS: 77062; 77066

== ENCOUNTER 2023-08-06 16:22 | Inpatient (IN) | payer BC ==
--- NOTE | 2023-08-06 16:54 | ED ---
General Adult HPI - General Chief complaint: Nausea/Vomiting/Diarrhea Stated complaint: Vomiting Time Seen by Provider: 08/06/23 16:42 Source: patient, family, RN notes reviewed Mode of arrival: ambulatory Limitations: no limitations - History of Present Illness Initial comments: Patient is a 38-year-old female present to the emergency department with c oncerns for vomiting. Onset of symptoms was 3 days ago. Patient has been vomiting multiple times. 1 episode of diarrhea. Decreased urination. Patient does have cough with some mild associated dyspnea. Patient did have fever 3 days ago, none since that time. No history of chronic similar symptoms. Patient does drink about 3 white claws daily. - Related Data Home Medications Medication Instructions Recorded Confirmed Losartan [Cozaar] 50 mg PO HS 05/20/21 05/20/21 Ondansetron Odt [Zofran ODT] 4 mg PO Q12H PRN 05/20/21 05/20/21 allopurinoL [Zyloprim] 300 mg PO HS 05/20/21 05/20/21 Previous Rx's Medication Instructions Recorded Acetaminophen Tab [Tylenol] 650 mg PO Q4HR PRN tab 05/24/21 Disulfiram [Antabuse] 250 mg PO DAILY #30 tablet 05/24/21 Folic Acid 1 mg PO DAILY #30 tab 05/24/21 Ibuprofen [Motrin] 600 mg PO Q8HR PRN #30 tab 05/24/21 Multivitamins, Thera [Multivitamin 1 each PO DAILY #30 tab 05/24/21 (formulary)] Thiamine [Vitamin B-1] 100 mg PO BID-W/MEALS #28 tab 05/24/21 Allergies Allergy/AdvReac Type Severity Reaction Status Date / Time No Known Allergies Allergy Verified 05/20/21 11:38 Review of Systems ROS Statement: Those systems with pertinent positive or pertinent negative responses have been documented in the HPI. ROS Other: All systems not noted in ROS Statement are negative. Constitutional: Reports: as per HPI Eyes: Denies: eye pain ENT: Denies: ear pain Respiratory: Reports: as per HPI, cough Cardiovascular: Denies: chest pain Endocrine: Reports: as per HPI Gastrointestinal: Reports: as per HPI, abdominal pain ( epigastric), nausea, vomiting Genitourinary: Denies: dysuria Musculoskeletal: Denies: back pain Past Medical History Past Medical History: Hypertension, Renal Disease Additional Past Medical History / Comment(s): ETOH abuse, gout bilateral feet, occasional nausea. History of Any Multi-Drug Resistant Organisms: None Reported Past Surgical History: Section, Cholecystectomy Past Anesthesia/Blood Transfusion Reactions: No Reported Reaction Past Psychological History: No Psychological Hx Reported Smoking Status: Current every day smoker, Vaper Past Alcohol Use History: Occasional Past Drug Use History: Marijuana - Past Family History Father Family Medical History: Hyperlipidemia, Hypertension Mother Family Medical History: Cancer Additional Family Medical History / Comment(s): Lung cancer General Exam Limitations: no limitations General appearance: alert, in no apparent distress Head exam: Present: normocephalic Eye exam: Present: normal appearance ENT exam: Present: normal exam Neck exam: Present: normal inspection Respiratory exam: Present: normal lung sounds bilaterally. Absent: respiratory distress, wheezes Cardiovascular Exam: Present: tachycardia Expanded Peripheral pulses: 2+: Posterior Tibialis (R), Posterior Tibialis (L) GI/Abdominal exam: Present: soft, normal bowel sounds. Absent: distended, tenderness, guarding, rebound, rigid, pulsatile mass Extremities exam: Present: normal inspection. Absent: pedal edema, calf tenderness Neurological exam: Present: alert Psychiatric exam: Present: normal affect, normal mood Skin exam: Present: normal color Course Vital Signs 08/06/23 08/06/23 08/06/23 16:29 17:32 18:41 Temperature 96.8 F L Pulse Rate 151 H 122 H 134 H Respiratory 20 20 20 Rate Blood Pressure 139/104 142/118 155/119 O2 Sat by Pulse 97 99 98 Oximetry EKG Findings - EKG Results: EKG: interpreted by ERMD (Q wave V1 V2. Nonspecific T waves), sinus rhythm, normal axis EKG shows: tachycardia Medical Decision Making - Medical Decision Making Was pt. sent in by a medical professional or institution (, PA, HOUSING PROPERTY MANAGER, urgent care, hospital, or penitentiary...) When possible be specific @ -No Did you speak to anyone other than the patient for history (EMS, parent, family, police, friend...)? What history was obtained from this source @ -Family is present and helps provide history including onset of symptoms Did you review nursing and triage notes (agree or disagree)? Why? @ -I reviewed and agree with nursing and triage notes Were old charts reviewed (outside hosp., previous admission, EMS record, old EKG, old radiological studies, urgent care reports/EKG's, penitentiary records)? Report findings @ -Previous chest x-ray is similar to today's Differential Diagnosis (chest pain, altered mental status, abdominal pain women, abdominal pain men, vaginal bleeding, weakness, fever, dyspnea, syncope, headache, dizziness, GI bleed, back pain, seizure, CVA, palpatations, mental health, musculoskeletal)? @ -Differential Abdominal Pain Women: Appendicitis, Cholecystitis, diverticulosis, ischemic bowel, pancreatitis, hepat itis, UTI, gastroenteritis, AAA, incarcerated hernia, bowel obstruction, constipation, inflammatory bowel, hepatitis, peptic ulcer disease, splenic infarction, perforated viscus, vulvitis, ovarian torsion, PID, kidney stone, placenta abruption, this is not meant to be an all-inclusive list EKG interpreted by me (3pts min.). @ -As above X-rays interpreted by me (1pt min.). @ -X-ray shows no acute process CT interpreted by me (1pt min.). @ -None done U/S interpreted by me (1pt. min.). @ -Ultrasound will be ordered What testing was considered but not performed or refused? (CT, X-rays, U/S, l abs)? Why? @ -Ultrasound abdomen for gallbladder will be ordered What meds were considered but not given or refused? Why? @ -None Did you discuss the management of the patient with other professionals (professionals i.e. , PA, HOUSING PROPERTY MANAGER, lab, RT, psych nurse, social services assistant, shipping services sales representative, teacher, chief privacy officer, child support case officer)? Give summary @ -Case was discussed with Dr. Gurrola who will admit covering Dr. Leach Was smoking cessation discussed for >3mins.? @ -No Was critical care preformed (if so, how long)? @ -No Were there social determinants of health that impacted care today? How? (Homelessness, low income, unemployed, alcoholism, drug addiction, transportation, low edu. Level, literacy, decrease access to med. care, snf, rehab)? @ -No Was there de-escalation of care discussed even if they declined (Discuss DNR or withdrawal of care, Hospice)? DNR status @ -No What co-morbidities impacted this encounter? (DM, HTN, Smoking, COPD, CAD, Cancer, CVA, ARF, Chemo, Hep., AIDS, mental health diagnosis, sleep apnea, morbid obesity)? @ -None Was patient admitted / discharged? Hospital course, mention meds given and route, prescriptions, significant lab abnormalities, going to OR and other pertinent info. @ -Patient reevaluated and still has nausea. Patient has acute kidney injury and will be admitted with IV fluids. Admission orders written. Ultrasound ordered. Undiagnosed new problem with uncertain prognosis? @ -No Drug Therapy requiring intensive monitoring for toxicity (Heparin, Nitro, Insulin, Cardizem)? @ -No Were any procedures done? @ -No Diagnosis/symptom? @ -Acute kidney injury Acute, or Chronic, or Acute on Chronic? @ -Acute Uncomplicated (without systemic symptoms) or Complicated (systemic symptoms)? @ -Default Side effects of treatment? @ -No Exacerbation, Progression, or Severe Exacerbation? @ -No Poses a threat to life or bodily function? How? (Chest pain, USA, NV, pneumonia, PE, COPD, DKA, ARF, appy, cholecystitis, CVA, Diverticulitis, Homicidal, Suicidal, threat to staff... and all critical care pts) @ -Potential for permanent renal damage if not correct - Lab Data Result diagrams: 08/06/23 17:22 08/06/23 17:22 Lab Results 08/06/23 08/06/23 08/06/23 Range/Units 17:20 17:22 17:22 WBC 12.2 H (3.8-10.6) k/uL RBC 5.27 (3.80-5.40) m/uL Hgb 17.8 H (11.4-16.0) gm/dL Hct 52.9 H (34.0-46.0) % MCV 100.4 H (80.0-100.0) fL MCH 33.8 (25.0-35.0) pg MCHC 33.7 (31.0-37.0) g/dL RDW 13.2 (11.5-15.5) % Plt Count 284 (150-450) k/uL MPV 7.9 Neutrophils % 73 % Lymphocytes % 19 % Monocytes % 5 % Eosinophils % 1 % Basophils % 1 % Neutrophils # 8.9 H (1.3-7.7) k/uL Lymphocytes # 2.3 (1.0-4.8) k/uL Monocytes # 0.6 (0-1.0) k/uL Eosinophils # 0.2 (0-0.7) k/uL Basophils # 0.1 (0-0.2) k/uL Sodium 132 L (137-145) mmol/L Potassium 3.3 L (3.5-5.1) mmol/L Chloride 95 L (98-107) mmol/L Carbon Dioxide 13 L (22-30) mmol/L Anion Gap 24 mmol/L BUN 58 H (7-17) mg/dL Creatinine 2.22 H (0.52-1.04) mg/dL Est GFR (CKD-EPI)AfAm 31 (>60 ml/min/1.73 sqM) Est GFR (CKD-EPI)NonAf 27 (>60 ml/min/1.73 sqM) Glucose 160 H (74-99) mg/dL Calcium 10.3 H (8.4-10.2) mg/dL Total Bilirubin 1.7 H (0.2-1.3) mg/dL AST 99 H (14-36) U/L ALT 41 H (4-34) U/L Alkaline Phosphatase 120 (38-126) U/L Total Protein 10.7 H (6.3-8.2) g/dL Albumin 5.7 H (3.5-5.0) g/dL Amylase 81 (30-110) U/L Lipase 345 H (23-300) U/L Serum Alcohol <10 mg/dL Influenza Type A (PCR) Not Detected (Not Detectd) Influenza Type B (PCR) Not Detected (Not Detectd) RSV (PCR) Not Detected (Not Detectd) SARS-CoV-2 (PCR) Not Detected (Not Detectd) Disposition Clinical Impression: Acute kidney injury Disposition: ADMITTED IP TO THIS HOSP Condition: Serious Is patient prescribed a controlled substance at d/c from ED?: No Referrals: Kt Leach MD [Primary Care Provider] - 1-2 days Time of Disposition: 18:50
[2023-08-06] MEDS: ONDANSETRON 4 MG/2 ML VIAL IVP STA ×2 (17:08→19:49)
[2023-08-06] MEDS: FAMOTIDINE 20 MG/2 ML VIAL IV STA (17:09)
[2023-08-06] MEDS: SODIUM CHLORIDE 0.9% 1,000 ML IV STA ×2 (17:11→19:50)
--- NOTE | 2023-08-06 17:33 | XR ---
EXAMINATION TYPE: XR chest 2V DATE OF EXAM: 08/06/2023 5:24 PM CLINICAL INDICATION:Female, 38 years old with history of cough; COMPARISON: Chest radiographs from 02/07/2017. TECHNIQUE: XR chest 2V Frontal and lateral views of the chest. FINDINGS: Lungs/Pleura: There is no evidence of pleural effusion, focal consolidation, or pneumothorax. Pulmonary vascularity: Unremarkable. Heart/mediastinum: Cardiomediastinal silhouette is unremarkable. Musculoskeletal: No acute osseous pathology. IMPRESSION: No acute cardiopulmonary disease/process.
[2023-08-06 17:35] LABS: Basophils # (A) 0.1 k/uL (0-0.2); Basophils % (A) 1 %; Eosinophils # (A) 0.2 k/uL (0-0.7); Eosinophils % (A) 1 %; HCT 52.9 % (34.0-46.0); HGB 17.8 gm/dL (11.4-16.0); Lymphocytes # (A) 2.3 k/uL (1.0-4.8); Lymphocytes % (A) 19 %; MCH 33.8 pg (25.0-35.0); MCHC 33.7 g/dL (31.0-37.0); MCV 100.4 fL (80.0-100.0); Mean Platelet Volume 7.9; Monocytes # (A) 0.6 k/uL (0-1.0); Monocytes % (A) 5 %; Neutrophils # (A) 8.9 k/uL (1.3-7.7); Neutrophils % (A) 73 %; Platelet Count 284 k/uL (150-450); RBC 5.27 m/uL (3.80-5.40); RDW 13.2 % (11.5-15.5); WBC 12.2 k/uL (3.8-10.6)
[2023-08-06 17:45] LABS: ALT 41 U/L (4-34); AST 99 U/L (14-36); African American GFR (CKD) 31 (>60 ml/min/1.73 sqM); Albumin 5.7 g/dL (3.5-5.0); Alcohol <10 mg/dL; Alkaline Phosphatase 120 U/L (38-126); Amylase 81 U/L (30-110); Anion Gap 24 mmol/L; Blood Urea Nitrogen 58 mg/dL (7-17); Calcium 10.3 mg/dL (8.4-10.2); Carbon Dioxide 13 mmol/L (22-30); Chloride 95 mmol/L (98-107); Glucose 160 mg/dL (74-99); Lipase 345 U/L (23-300); Non-African American GFR(CKD) 27 (>60 ml/min/1.73 sqM); Potassium 3.3 mmol/L (3.5-5.1); Sodium 132 mmol/L (137-145); Total Bilirubin 1.7 mg/dL (0.2-1.3); Total Protein 10.7 g/dL (6.3-8.2)
[2023-08-06] MEDS ORDERED: ONDANSETRON 4 MG/2 ML VIAL IVP PRN (18:51)
[2023-08-06] MEDS ORDERED: NALOXONE 0.4 MG/ML 1 ML VIAL IV PRN ×2 (18:51→20:36)
--- NOTE | 2023-08-06 19:41 | US ---
EXAMINATION TYPE: US gallbladder DATE OF EXAM: 08/06/2023 COMPARISON: 05/27/21 CLINICAL INDICATION: Female, 38 years old with history of pain; Pain x 3 days. Pt states she has been unable to urinate for 3 days as well. Cholecystectomy in 2021 TECHNIQUE: Multiple sonographic images of the right upper quadrant are obtained. FINDINGS: EXAM MEASUREMENTS: Liver Length: 12.7 cm Gallbladder Wall: Surgically absent CBD: 0.6 cm Right Kidney: 11.6 x 5.1 x 4.7 cm Pancreas: wnl Liver: Heterogeneous Gallbladder: Surgically absent Evidence for sonographic Medina's sign: No CBD: wnl Right Kidney: Echogenic area seen at mid pole measuring 0.6 x 0.8 x 0.7cm 8 mm echogenic foci within the mid pole of the right kidney without acoustic shadowing. Possibly repr esents an angiomyolipoma. CT abdomen and pelvis for nonemergent basis would be useful for further olga luation. There is no definite renal calculi or hydronephrosis. IMPRESSION: 1. Cholecystectomy. 2. Focal abnormality within the right kidney not consistent with a renal calcification. CT abdomen an d pelvis recommended on a nonemergent basis.
[2023-08-06] MEDS: BENZOCAINE/MENTHOL LOZENG 1 EACH LOZENGE MUCOUS MEM PRN (19:48)
[2023-08-06] MEDS: ACETAMINOPHEN TAB 325 MG TAB PO PRN (19:48)
[2023-08-06] MEDS: PANTOPRAZOLE 40 MG/10 ML VIAL IVP STA (19:49)
[2023-08-06] MEDS: SODIUM CHLORIDE 0.9% 1,000 ML IV SCH (19:50)
[2023-08-06] MEDS: SODIUM CHLORIDE 0.9% 500 ML 500 ML IV STA (19:50)
[2023-08-06] MEDS ORDERED: LORazepam 2 MG/ML INJ IV PRN (20:38)
[2023-08-06] MEDS ORDERED: METOCLOPRAMIDE 5 MG/ML 2 ML VIAL IVP PRN (20:39)
--- NOTE | 2023-08-06 21:12 | P.HPIM ---
History of Present Illness H&P Date: 08/06/23 Chief Complaint: vomiting 38-year-old female present to the emergency department with concerns for vomiting. Onset of symptoms was 3 days ago. in addition she has been feeling dizzy, lightheaded when she gets up. She was having upper abdominal pain located in the epigastric and right upper quadrant areas. Has been feeling very weak and was having shortness of breath with ambulation. She also described episodes of's hands spasms. Had 1 episode of diarrhea. Decreased urination. Daily alcohol drinker of 2-3 beers per day alcohol drinking much more for that. She has been drinking for years. No chest pain. No headaches. She states that she runs high on her BP chronially, has a bp monitor at home which shows regular bp of 145/115 and HR 110s. She did not seek medical attention for that. patient also states that when she had her gallbladder out years ago the surgeon noted some scarring in the liver due to alcohol abuse. upon evaluation in the emergency department her blood pressure was in the 150s over 120s range, heart rate was 130s. Labs showed acute renal failure with elevated creatinine, hypokalemia and hyponatremia. Elevated liver enzymes. Liver ultrasound shows nothing significant in the liver as well as in heterogenous structure, there is 8mm focal mass in the kidney, right consistent with angiomyolipoma, recommending computed tomography scan for accurate characterization on a nonemergent basis. Review of Systems complete review of system performed, pertinent positives according to HPI, otherwise negative Past Medical History Past Medical History: Hypertension, Renal Disease Additional Past Medical History / Comment(s): ETOH abuse, gout bilateral feet, occasional nausea. History of Any Multi-Drug Resistant Organisms: None Reported Past Surgical History: Section, Cholecystectomy Past Anesthesia/Blood Transfusion Reactions: No Reported Reaction Past Psychological History: No Psychological Hx Reported Smoking Status: Current every day smoker, Vaper Past Alcohol Use History: Occasional Past Drug Use History: Marijuana - Past Family History Father Family Medical History: Hyperlipidemia, Hypertension Mother Family Medical History: Cancer Additional Family Medical History / Comment(s): Lung cancer Medications and Allergies Home Medications Medication Instructions Recorded Confirmed Type No Known Home Medications 08/06/23 08/06/23 History Allergies Allergy/AdvReac Type Severity Reaction Status Date / Time No Known Allergies Allergy Verified 08/06/23 19:08 Physical Exam Vitals: Vital Signs Temp Pulse Resp BP Pulse Ox 08/06/23 18:41 134 H 20 155/119 98 08/06/23 17:32 122 H 20 142/118 99 08/06/23 16:29 96.8 F L 151 H 20 139/104 97 Intake and Output 08/06/23 08/06/23 08/06/23 06:59 14:59 22:59 Other: Weight 47.627 kg Constitutional: No acute distress, conversant, pleasant Eyes:Anicteric sclerae, moist conjunctiva, no lid-lag, PERRLA, ENMT: Oropharynx clear, no erythema, exudates Neck: Supple, FROM, no masses, or JVD, No carotid bruits, No thyromegaly Lungs: Clear to auscultation, Clear to percussion, Normal respiratory effort, no accessory muscle use Cardiovascular: Heart regular in rate and rhythm, No murmurs, gallops, or rubs, No peripheral edema Abdominal: Soft, right upper quadrant, left upper quadrant and epigastric tenderness. no guarding, rebound or rigidity, Normoactive bowel sounds, No hepatomegaly, No splenomegaly, No palpable mass Skin: Normal temperature, tone, texture, turgor, no induration, No subcutaneous nodules, No rash, lesions, No ulcers Extremities: No digital cyanosis, No clubbing, Pedal pulses intact and symmetrical, Radial pulses intact and symmetrical, No calf tenderness Psychiatric: Alert and oriented to person, place and time, appropriate affect, intact judgement Neuro: Muscles Strength 5/5 in all 4 extremities, Sensation to light touch grossly present throughout, Cranial nerves II-XII grossly intact, no focal sensory deficits Results CBC & Chem 7: 08/06/23 17:22 08/06/23 17:22 Labs: Abnormal Lab Results - Last 24 Hours (Table) 08/06/23 08/06/23 Range/Units 17:22 17:22 WBC 12.2 H (3.8-10.6) k/uL Hgb 17.8 H (11.4-16.0) gm/dL Hct 52.9 H (34.0-46.0) % MCV 100.4 H (80.0-100.0) fL Neutrophils # 8.9 H (1.3-7.7) k/uL Sodium 132 L (137-145) mmol/L Potassium 3.3 L (3.5-5.1) mmol/L Chloride 95 L (98-107) mmol/L Carbon Dioxide 13 L (22-30) mmol/L BUN 58 H (7-17) mg/dL Creatinine 2.22 H (0.52-1.04) mg/dL Glucose 160 H (74-99) mg/dL Calcium 10.3 H (8.4-10.2) mg/dL Total Bilirubin 1.7 H (0.2-1.3) mg/dL AST 99 H (14-36) U/L ALT 41 H (4-34) U/L Total Protein 10.7 H (6.3-8.2) g/dL Albumin 5.7 H (3.5-5.0) g/dL Lipase 345 H (23-300) U/L Assessment and Plan Plan: Acute renal failure likely secondary to dehydration Start IV fluids avoid nephrotoxic meds Follow creatinine in the a.m. Transaminitis/acute alcoholic hepatitis IV fluids Counseled to quit alcohol MELD score about 21, INR not done, will order to calculate accurate score and based on that would treat with prednisolone if score higher than 21. start anti-emetics Alcohol abuse Start alcohol withdrawal protocol with lorazepam Start multivitamins, folic acid and thiamine Hypokalemia Replace and follow in a.m. metabolic acidosis likely secondary to alcoholic ketoacidosis versus starvation versus secondary to renal failure. Monitor bicarb and anion gap Hypertension and sinus tachycardia Secondary to alcohol abuse and withdrawal Start labetalol 100 mg 3 times a day for now.
[2023-08-06] MEDS: THIAMINE 100 MG/ML 2 ML VIAL IM STA (23:39)
[2023-08-06] MEDS: POTASSIUM CHLORIDE ER 20 MEQ TAB.ER PO SCH (23:40)
[2023-08-06] MEDS: LABETALOL 100 MG TAB PO SCH (23:40)
[2023-08-06] MEDS: POTASSIUM CHLORIDE IV SCH (23:40)
[2023-08-07] MEDS: THIAMINE 100 MG/ML 2 ML VIAL IM STA (04:16)
[2023-08-07] MEDS: POTASSIUM CHLORIDE 20 MEQ in WATER FOR INJECTION 1 100ML.BAG IVPB STA (07:48)
[2023-08-07] MEDS: PANTOPRAZOLE 40 MG/10 ML VIAL IV SCH (10:18)
[2023-08-07] MEDS: FOLIC ACID 1 MG TAB PO SCH (10:18)
[2023-08-07] MEDS: MULTIVITAMINS, THERA 1 EACH TAB PO SCH (10:19)
[2023-08-07] MEDS: THIAMINE 100 MG TAB PO SCH (10:19)
[2023-08-07 10:28] VITALS: RESP 16; TEMP 97.9
[2023-08-07 10:50] LABS: Basophils % (A) 0 %; Eosinophils # (A) 0.1 k/uL (0-0.7); Eosinophils % (A) 2 %; HCT 38.6 % (34.0-46.0); Lymphocytes # (A) 1.6 k/uL (1.0-4.8); Lymphocytes % (A) 24 %; MCH 33.9 pg (25.0-35.0); MCHC 33.2 g/dL (31.0-37.0); MCV 102.2 fL (80.0-100.0); Macrocytosis Slight; Mean Platelet Volume 7.7; Monocytes # (A) 0.4 k/uL (0-1.0); Monocytes % (A) 6 %; Neutrophils # (A) 4.4 k/uL (1.3-7.7); Neutrophils % (A) 65 %; Platelet Count 149 k/uL (150-450); RBC 3.78 m/uL (3.80-5.40); RDW 13.3 % (11.5-15.5); WBC 6.7 k/uL (3.8-10.6)
[2023-08-07 10:52] LABS: HGB 12.8 gm/dL (11.4-16.0)
[2023-08-07 10:53] LABS: Prothrombin Time 11.3 sec (10.0-12.5)
[2023-08-07 11:18] LABS: ALT 30 U/L (4-34); AST 88 U/L (14-36); African American GFR (CKD) >90 (>60 ml/min/1.73 sqM); Albumin 3.9 g/dL (3.5-5.0); Alkaline Phosphatase 67 U/L (38-126); Amylase 62 U/L (30-110); Anion Gap 10 mmol/L; Blood Urea Nitrogen 24 mg/dL (7-17); Calcium 8.2 mg/dL (8.4-10.2); Carbon Dioxide 19 mmol/L (22-30); Chloride 107 mmol/L (98-107); Glucose 90 mg/dL (74-99); Lipase 706 U/L (23-300); Magnesium 1.8 mg/dL (1.6-2.3); Non-African American GFR(CKD) >90 (>60 ml/min/1.73 sqM); Phosphorus 1.4 mg/dL (2.5-4.5); Potassium 3.5 mmol/L (3.5-5.1); Sodium 136 mmol/L (137-145); Total Bilirubin 1.2 mg/dL (0.2-1.3); Total Protein 6.8 g/dL (6.3-8.2)
--- NOTE | 2023-08-07 11:44 | P.DS ---
Providers Date of admission: 08/06/23 20:36 Expected date of discharge: 08/07/23 Attending physician: Louise Rodríguez DO Primary care physician: Kt Leach Hospital Course: Discharge Diagnosis: Alcohol dependence Mild Alcoholic pancreatitis Elevated transaminases Dehydration Sinus tachycardia Acute kidney injury Hypovolemic hyponatremia Hypokalemia Leukocytosis Right kidney possible angiomyolipoma, 8mm Hospital Course: 38-year-old female with history of hypertension, alcohol dependence presenting with multiple complaints including vomiting, lightheadedness, abdominal pain, weakness. She claims that her last drink was few days ago, she normally drinks about 2-3 beers per day. On initial presentation, patient was tachycardic, slightly hypertensive. EKG revealed sinus tachycardia. Chest x-ray unremarkable. Laboratory workup showed WBC 12.2, hemoglobin 17.8, sodium 132, potassium 3.3, bicarb 13, BUN 58, creatinine 2.22, calcium 10.3, total bili 1.7, AST 99, ALT 41, ALP 120, lipase 345, serum alcohol negative, respiratory viral panel negative. Patient started on IV fluids, and given potassium. Symptoms improved with IV fluids. Renal function back to normal at the time of discharge. Denies any abdominal pain at the time of discharge. Patient did have elevated lipase, suspected mild pancreatitis. For hypertension, patient being discharged on amlodipine. Liver ultrasound showed liver within normal limits, Does show 8 mm echogenic foci within the midpole of right kidney possibly angiomyolipoma Patient to follow-up with PCP, refrain from drinking. Patient seen and examined at bedside. Vital signs reviewed and stable. General: Nontoxic, no distress, appears at stated age Derm: Warm, dry Head: Atraumatic, normocephalic, symmetric Eyes: EOMI, no lid lag, anicteric sclera Mouth: No lip lesion, mucus membranes moist Cardiovascular: S1S2 reg, no murmur Lungs: CTA bilateral, no rhonchi, no rales, no accessory muscle use Abdominal: Soft, nontender to palpation, no guarding, no appreciable o rganomegaly Ext: No gross muscle atrophy, no edema, no contractures Neuro: CN II-XI grossly intact, no focal neuro deficits Psych: Alert, oriented, appropriate affect A total of 33 minutes of time were spent preparing this complex discharge summary. Patient was discharged on 08/07/2023 at 1135. Patient Condition at Discharge: Stable Plan - Discharge Summary New Discharge Prescriptions: New Folic Acid 1 mg PO DAILY #60 tab Multivitamins, Thera [Multivitamin (formulary)] 1 each PO DAILY #60 tab amLODIPine [Norvasc] 5 mg PO DAILY #90 tab Thiamine [Vitamin B-1] 100 mg PO DAILY #60 tab Discharge Medication List Folic Acid 1 mg PO DAILY #60 tab 08/07/23 [Rx] Multivitamins, Thera [Multivitamin (formulary)] 1 each PO DAILY #60 tab 08/07/23 [Rx] Thiamine [Vitamin B-1] 100 mg PO DAILY #60 tab 08/07/23 [Rx] amLODIPine [Norvasc] 5 mg PO DAILY #90 tab 08/07/23 [Rx] Follow up Appointment(s)/Referral(s): Kt Leach MD [Primary Care Provider] - 1-2 days Patient Instructions/Handouts: Acute Kidney Injury (DC), Abuse of Alcohol (DC), Chronic Hypertension (DC), Alcohol Dependence (DC) Activity/Diet/Wound Care/Special Instructions: Please see your PCP. Discharge Disposition: HOME SELF-CARE
[2023-08-07 11:50] VITALS: BP 115/84; PULSE 96
--- NOTE | 2023-08-08 14:57 | CDI ---
Documentation Clarification Form Date: 08/08/2023 02:17:09 PM From: Emily Santiago RN, CCDS Email: [email or web address] Admit Date: 08/06/2023 08:36:00 PM Patient Name: Kala Castillo Visit Number: [id number] Discharge Date: 08/07/2023 12:12:00 PM ATTENTION: The Clinical Documentation Specialists (CDI) and [facility] Coding Staff appreciate your assistance in clarifying documentation. Please respond to the clarification below the line at the bottom and electronically sign. The CDI & [facility] Coding staff will review the response and follow-up if needed. Please note: Queries are made part of the Legal Health Record. If you have any questions, please contact the author of this message via ITS. Dr. Marco A Prado The patient had leukocytosis, tachycardia and alcoholic pancreatitis. Based on this information and the findings below, is there an additional diagnosis that is clinically appropriate for this patient? History/Risk Factors: HTN, renal disease and alcohol abuse. Presented with nausea, vomiting and diarrhea. Admitted with mild alcoholic pancreatitis. Clinical Indicators: ED: "EKG shows tachycardia." H&P: "metabolic acidosis likely secondary to alcoholic ketoacidosis versus starvation versus secondary to renal failure. Monitor bicarb and anion gap. Discharge summary: "Alcohol dependence; mild alcoholic pancreatitis; elevated transaminases; EKATERINA; hyponatremia; leukocytosis." 08/05-08/06 WBC: 12.2-6.7 08/05-08/06 Cr 2.22-0.79; AST 99-88; ALT 41-30; Lipase 345-706 08/05 Anion gap: 24 Treatment: Monitor labs; 2L 0.9 NS IV bolus on 08/05 then 130mL/hr; Vitamin B-1 100mg IM x2 08/05 Is there an additional diagnosis that is clinically appropriate for this patient? [ x] Non-infectious SIRS causing EKATERINA [ ] Non-infectious SIRS not causing EKATERINA [ ] No additional diagnosis/not clinically significant [ ] Other, please specify [ ] Unable to determine SIRS Criteria: 2 or more of the following may indicate SIRS Temperature < 96.8F (36C) or > 101.0F (38.3C) Heart Rate > 90 bpm Respiratory Rate > 20 breaths/min or PaCO2 < 32 mmHg White Blood Cell Count > 12,000 or < 4,000 cells/mm3 or > 10% bands MTDD
== END 2023-08-07 12:12 | disposition home or self-care (01) | DRG 438 ==
LOC: EC 16:22 → 3SCARD 18:51 → OBSVTOIN 20:36 → 3SCARD 21:09
PROVIDERS: ADMIT Internal Medicine; ATTEND Internal Medicine
DX: K85.20 Alcohol induced acute pancreatitis without necrosis or infection (principal); R65.11 Systemic inflammatory response syndrome (SIRS) of non-infectious origin with acute organ dysfunction; E87.1 Hypo-osmolality and hyponatremia; F10.239 Alcohol dependence with withdrawal, unspecified; N17.9 Acute kidney failure, unspecified; E86.0 Dehydration; E86.1 Hypovolemia; E87.6 Hypokalemia; F17.290 Nicotine dependence, other tobacco product, uncomplicated; I10 Essential (primary) hypertension; K70.10 Alcoholic hepatitis without ascites; Z11.52 Encounter for screening for COVID-19; Z71.41 Alcohol abuse counseling and surveillance of alcoholic
CPT/HCPCS: 36415; 71046; 76705; 80053; 80320; 82150; 83690; 83735; 84100; 85025; 85610; 87636; 93005; 96361; 96365; 96366; 96372; 96375; 96376; 99285

== ENCOUNTER → 2024-07-02 | Outpatient (CLI) | payer BC ==
--- NOTE | 2024-07-02 14:39 | US ---
EXAMINATION TYPE: US transvaginal DATE OF EXAM: 07/02/2024 COMPARISON: CT abdomen and pelvis 03/06/2015 CLINICAL INDICATION: Female, 39 years old with history of N92.6 IRREG MENSES; Irregular menses. TECHNIQUE: Transvaginal (TV). Doppler imaging: Not performed. FINDINGS: EXAM MEASUREMENTS: Uterus: 8.7 x 4.5 x 6.8 cm Endometrial Stripe: 1.3 cm Right Ovary: 2.8 x 1.7 x 1.8 cm Left Ovary: 3.8 x 2.1 x 2.9 cm 1. Uterus: Anteverted Nabothian cyst seen measuring 1.4 x 1.2 x 1.3 cm 2. Endometrium: wnl 3. Right Ovary: wnl 4. Left Ovary: wnl 5. Bilateral Adnexa: wnl 6. Posterior cul-de-sac: wnl Unremarkable anteverted uterus without focal lesion. Incidental cervical nabothian cyst with debris. Endometrium is within normal limits. Both ovaries appear unremarkable. Dominant follicle within the l eft ovary. No free fluid. IMPRESSION: No ultrasound evidence for acute pelvic process. [facility], , 07/02/2024 2:37 PM
--- NOTE | 2024-07-02 14:42 | US ---
EXAMINATION TYPE: US mass soft tissue chest/back DATE OF EXAM: 07/02/2024 COMPARISON: NONE CLINICAL INDICATION: Female, 39 years old with history of L98.9 DISORDER OF THE SKIN AND SUBCUTANEOUS TISSUE; Lump upper back x 15 years. TECHNIQUE: Multiple grayscale and color Doppler ultrasound images of the superficial left upper back at patient's region of palpable abnormality were obtained. FINDINGS/IMPRESSION: Complex hypoechoic/anechoic with well-circumscribed lesion within the left upper back at the patient's region of palpable abnormality. This measures 1.6 x 0.6 x 1.5 cm with posterio r acoustic enhancement. No internal color flow. There is some internal echogenicity identified. This is approximately 2 to 3 mm from the skin surface. Left upper back measuring 1.6 x .6 x 1.5 cm. No de finitive tract to the skin surface identified. This may represent a sebaceous cyst or a pilomatricoma versus other etiologies. Consider dermatology consult. [facility], , 07/02/2024 2:40 PM
== END | disposition home or self-care (01) ==
LOC: RADUSWWP 13:52
PROVIDERS: ATTEND Family Medicine
DX: N92.6 Irregular menstruation, unspecified (principal); L98.9 Disorder of the skin and subcutaneous tissue, unspecified
CPT/HCPCS: 76830

== ENCOUNTER → 2024-07-07 | Outpatient (CLI) | payer BC ==
--- NOTE | 2024-07-07 12:05 | MM ---
Reason for Exam: Screening (asymptomatic). Last screening mammogram was performed 12 month(s) ago. Patient History: Menarche at age 11. First Full-Term at age 21. Perimenopausal. Patient used Hormonal Contraceptives for 3 years. Paternal grandmother had breast cancer. Maternal aunt had breast cancer. Maternal cousin had breast cancer. Maternal cousin had breast cancer. Risk Values: Dede 5 year model risk: 0.5%. NCI Lifetime model risk: 9.0%. Prior Study Comparison: 01/03/2023 Bilateral MG screening mammo w CAD, [facility]. 07/11/2023 Bilateral MG 3D diag mammo w/cad [facility], [facility]. Tissue Density: The breasts are heterogeneously dense, which may obscure small masses. Findings: Analyzed By CAD. Asymmetric density right 12:00 position 6.4 cm from nipple. Additional no suspicious consultations within either breast. No mass density within the left breast. Overall Assessment: Incomplete: need additional imaging evaluation, BI-RAD 0 Management: Diagnostic Mammogram of the right breast. . Patient should continue monthly self-breast exams. A clinical breast exam by your physician is recommended on an annual basis. This exam should not preclude additional follow-up of suspicious palpable abnormalities. Note on Dede scores and lifetime risk: 1. A Dede score greater than 3% is considered moderate risk. If this is the case, consider specialist referral to assess eligibility for a risk reducing agent. 2. If overall lifetime risk for the development of breast cancer is 20% or higher, the patient may qualify for future screening with alternating mammogram and breast MRI. [facility], , 07/07/2024 12:02 PM. Electronically signed and approved by: Khanh Kunz M.D. Radiologis
== END | disposition home or self-care (01) ==
LOC: RADMAMWWP 10:59
PROVIDERS: ATTEND Family Medicine
DX: Z12.31 Encounter for screening mammogram for malignant neoplasm of breast (principal); R92.333 Mammographic heterogeneous density, bilateral breasts; Z80.3 Family history of malignant neoplasm of breast; Z92.0 Personal history of contraception
CPT/HCPCS: 77063; 77067

== ENCOUNTER → 2024-07-14 | Outpatient (CLI) | payer BC ==
--- NOTE | 2024-07-14 13:06 | MM ---
Reason for Exam: Clinical finding. Last screening mammogram was performed less than 1 month ago. Patient History: Menarche at age 11. First Full-Term at age 21. Perimenopausal. Patient used Hormonal Contraceptives for 3 years. Paternal grandmother had breast cancer. Maternal aunt had breast cancer. Maternal cousin had breast cancer. Maternal cousin had breast cancer. Risk Values: Dede 5 year model risk: 0.5%. NCI Lifetime model risk: 9.0%. Tissue Density: Right: The breasts are heterogeneously dense, which may obscure small masses. Findings: Analyzed By CAD. No suspicious new mass persists on additional views. Overall Assessment: Negative, BI-RAD 1 Management: Screening Mammogram of both breasts in 1 year. Return to routine follow-up. Results were given to the patient verbally at the time of exam. Patient should continue monthly self-breast exams. A clinical breast exam by your physician is recommended on an annual basis. This exam should not preclude additional follow-up of suspicious palpable abnormalities. Note on Dede scores and lifetime risk: 1. A Dede score greater than 3% is considered moderate risk. If this is the case, consider specialist referral to assess eligibility for a risk reducing agent. 2. If overall lifetime risk for the development of breast cancer is 20% or higher, the patient may qualify for future screening with alternating mammogram and breast MRI. [facility], , 07/14/2024 1:01 PM. Electronically signed and approved by: Rico Foster M.D.
== END | disposition home or self-care (01) ==
LOC: RADMAMWWP 12:32
PROVIDERS: ATTEND Family Medicine
DX: R92.8 Other abnormal and inconclusive findings on diagnostic imaging of breast (principal); R92.331 Mammographic heterogeneous density, right breast; Z80.3 Family history of malignant neoplasm of breast; Z92.0 Personal history of contraception
CPT/HCPCS: 77061; 77065

== ENCOUNTER → 2024-07-24 | Outpatient (CLI) | payer BC ==
--- NOTE | 2024-07-24 08:36 | US ---
EXAMINATION TYPE: US carotid duplex BILAT DATE OF EXAM: 07/24/2024 COMPARISON: NONE CLINICAL INDICATION: Female, 39 years old with history of Z91.89 PERS RISK FACTORS R74.01 ABN LEVELS Z82.49; Hx HTN; Patient denies any other signs, symptoms, or relevant history Additional History: .... TECHNIQUE: Grayscale, color Doppler and spectral Doppler evaluation of the bilateral carotid systems and vertebral arteries. Indirect Doppler criteria was utilized. 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 High bifurcations and tortuous ICAs bilaterally. Color Doppler imaging shows patency with blood flow throughout the carotid artery. Spectral waveforms are within normal limits. IMPRESSION: Right: No hemodynamically significant stenosis. Left: No hemodynamically significant stenosis. Criteria for Assigning % of Stenosis / Diameter reduction (Estimation based on the indirect measurements of the internal carotid artery velocities (ICA PSV). 1. Normal (no stenosis)=ICA PSV < 125 cm/s: ratio < 2.0: ICA EDV<40 cm/s. 2. Less than 50% stenosis=ICA PSV < 125 cm/s: ratio < 2.0: ICA EDV<40 cm/s. 3. 50 to 69% stenosis=ICA PSV of 125 to 230 cm/s: ration 2.0 ? 4.0: ICA EDV 40-100 cm/s. 4. Greater than 70% stenosis to near occlusion= ICA PSV > 230 cm/s: ratio > 4.0: ICA EDV > 100 cm/s. 5. Near occlusion= ICA PSV velocities may be low or undetectable: variable ratio and ICA EDV. 6. Total occlusion=unable to detect flow. [facility], , 07/24/2024 8:34 AM
--- NOTE | 2024-07-24 08:39 | US ---
EXAMINATION TYPE: US liver DATE OF EXAM: 07/24/2024 COMPARISON: 08/06/2023 gallbladder ultrasound CLINICAL INDICATION: Female, 39 years old with history of Z91.89 PERS RISK FACTORS R74.01 ABN LEVELS Z82.49; Patient states increase in alcohol use over the last year. Hx HTN TECHNIQUE: Grayscale and color Doppler imaging of the right upper quadrant was performed. 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 within gallbladder fossa = 1.8 x 1.6 x 1.6 cm; ? Fluid adjacent to area Gallbladder: Surgically absent Evidence for sonographic Medina's sign: No? Patient states pain when scanning liver finding CBD: ? Dilated Right Kidney: wnl Persistent heterogeneous hyperechoic appearance of the liver. This limits evaluation for focal masses . No ascites. Possible retained gallbladder fragment with internal gallstone. Follow-up advised. Comm on bile duct fairly stable and within normal limits. IMPRESSION: 1. Heterogeneous hyperechoic appearance of liver consistent with diffuse fatty infiltration and/or un derlying hepatocellular disease. No new biliary dilatation or ascites noted. 2. On current study however the gallbladder fossa there is small thin walled fluid collection with in ternal echoes could reflect retained gallbladder fragment and gallstone. Advise further investigation with HIDA scan and/or MRI/MRCP follow-up. [facility], , 07/24/2024 8:37 AM
--- NOTE | 2024-07-24 10:02 | CT ---
EXAMINATION TYPE: CT angio thor/abd CT DLP: 921 mGycm, Automated exposure control for dose reduction was used. DATE OF EXAM: 07/24/2024 9:28 AM COMPARISON: CT abdomen and pelvis 03/06/2020. CLINICAL INDICATION:Female, 39 years old with history of Z91.89 PERS RISK FACTORS R74.01 ABN LEVELS Z 82.49; PHH, High blood pressure, family history aortic aneurysm TECHNIQUE: Dissection protocol: Multiple axial CT images of the chest and abdomen were obtained prior and to the administration of IV contrast. 3-D reformats and maximum intensity projection format were performed on a separate workstation. Then the abdomen was scanned after administration of 100 cc of Isovue 370 IV contrast. FINDINGS: ARTERIAL VASCULATURE: Four-vessel aortic arch. No evidence for intramural hematoma or dissection. The aortic root measures up to 3.2 cm. The ascending thoracic aorta measuring up to 3.9 cm. The descendi ng thoracic aorta measures up to 2.1 cm. The thoracic aorta is normal in course. Great arch vessels p atent and normal in course and caliber. Normal course and caliber of the abdominal aorta. Normal alvarenga nt appearance of the bilateral common iliac arteries. Normal patent appearance of the visualized bila teral internal and external iliac arteries. The celiac axis, SMA, and COURT are widely patent. There ar e 2 left and 2 right renal arteries are widely patent. PULMONARY ARTERIAL VASCULATURE: Normal caliber. No evidence of filling defect to suggest pulmonary em bolus. Lungs/pleura: The lung parenchyma appears unremarkable. No suspicious pulmonary nodule or mass. Heart: Size within normal limits.Minimal coronary artery calcifications. No pericardial effusion. Mediastinum: No gross evidence of adenopathy. Lower Neck: No significant findings. Abdomen: Liver: Diffusely hypoattenuating consistent with steatosis. Gallbladder and Bile ducts: Gallbladder surgically absent. No biliary ductal dilatation.. Pancreas: Unremarkable. Spleen: Unremarkable. Adrenal glands: Unremarkable. Kidneys and Ureters: No hydronephrosis. A couple of nonobstructing right renal adjacent calculi measu ring up to 5 mm. The kidneys enhance symmetrically. Stomach and Bowel: Unremarkable. No evidence of bowel obstruction. Peritoneum: No evidence of pneumoperitoneum, free fluid, or adenopathy. Bladder: Unremarkable. Reproductive: Unremarkable. Abdominal wall/soft tissues: Tiny fat filled umbilical hernia.. Musculoskeletal: The osseous structures appear intact. Remote healed right lateral sixth and seventh rib fractures. Multilevel degenerative disc disease with anterior osteophytosis, endplate sclerosis, disc space narrowing, and vacuum disc disease. IMPRESSION: 1. Ectasia of the ascending thoracic aorta measuring 3.9 cm. No abdominal aortic aneurysm. No evidenc e for intramural hematoma or dissection. No significant stenosis. 2. Nonobstructive right renal calculi. 3. Hepatic steatosis. [facility], , 07/24/2024 9:59 AM
== END | disposition home or self-care (01) ==
LOC: RADUSWWP 07:22
PROVIDERS: ATTEND Family Medicine
DX: N20.0 Calculus of kidney (principal); K76.0 Fatty (change of) liver, not elsewhere classified; I77.810 Thoracic aortic ectasia; I10 Essential (primary) hypertension; I65.23 Occlusion and stenosis of bilateral carotid arteries; Z91.89 Other specified personal risk factors, not elsewhere classified; R74.01 Elevation of levels of liver transaminase levels; K80.20 Calculus of gallbladder without cholecystitis without obstruction; Z82.49 Family history of ischemic heart disease and other diseases of the circulatory system
CPT/HCPCS: 93880; 76705; 71275; 74175; Q9967